=== PATIENT | male | born 1965 | race Caucasian/White ===

== ENCOUNTER 2023-04-26 14:24 | Inpatient (IN) ==
[2023-04-26 15:13] LABS: Basophils # (auto) 0.03 K/uL (0.00-0.20); Basophils % (auto) 0.3 %; Eosinophils # (auto) 0.02 K/uL (0.00-0.50); Eosinophils % (auto) 0.2 %; Hematocrit (blood only) 39.3 % (42.0-52.0); Immature Granulocytes # (auto) 0.06 K/uL (0.01-0.20); Immature Granulocytes % (auto) 0.5 %; Lymphocytes # (auto) 0.64 K/uL (1.20-3.40); Lymphocytes % (auto) 5.4 %; Mean Corpuscular Hemoglobin 30.2 pg (25.0-34.0); Mean Corpuscular Hgb Conc 35.6 g/dL (32.0-36.0); Mean Corpuscular Volume 84.7 fL (80.0-100.0); Mean Platelet Volume 10.7 fL (9.4-12.4); Monocytes # (auto) 1.26 K/uL (0.11-0.59); Monocytes % (auto) 10.7 %; Neutrophils # (auto) 9.77 K/uL (1.40-6.50); Neutrophils % (auto) 82.9 %; Platelet Count 174 K/uL (130-400); RDW Coefficient of Variation 12.9 % (11.5-14.5); RDW Standard Deviation 39.9 fL (36.4-46.3); Red Blood Count 4.64 M/uL (4.70-6.10); White Blood Count 11.78 K/ul (4.8-10.8)
--- NOTE | 2023-04-26 15:26 | XRay Report ---
XR chest 1V portable CLINICAL HISTORY: Shortness of breath. COMPARISON STUDY: Chest radiograph May 12, 2021. FINDINGS: No pneumothorax or pleural effusion is present. Cardiomegaly is unchanged. No evidence for pulmonary edema. A 5.5 cm right midlung mass-like opacity has developed since prior chest radiograph of May 12, 2021. Curvilinear lucency along the superolateral aspect of this abnormality is noted. IMPRESSION: 5.5 cm right midlung mass-like opacity, possibly cavitary. The findings are suspicious fo r a neoplasm however an infectious process could appear similar. A chest CT with contrast is recommen ded for further evaluation. ACT 112: Positive. There are findings on this exam that require communication between the performing entity and the patient following Patient Test Result Information Act ([place] Act 112) guidelines. Electronically signed by: Song Alvarado M.D. 04/26/2023 3:25 PM
[2023-04-26 15:32] LABS: INR 1.2 (0.9-1.1); Partial Thromboplastin Time 29 Seconds (21-31); Prothrombin Time 13.2 Seconds (9.0-12.0)
[2023-04-26 15:34] LABS: Influenza A virus by PCR Negative (Neg); Influenza B virus by PCR Negative (Neg); RSV by PCR Negative (Neg); SARS CoV2 RNA(COVID-19) Ceph NEGATIVE (Negative)
[2023-04-26 15:38] LABS: Alanine Aminotransferase 28 U/L (7-52); Albumin Level 3.7 gm/dl (3.4-5.0); Alkaline Phosphatase 58 U/L (34-104); Anion Gap 11 (3-11); BUN Creatinine Ratio 14.7 (10-20); Bilirubin,Total 1.2 mg/dl (0.2-1.0); Blood Urea Nitrogen 16 mg/dl (6-23); Calcium 8.6 mg/dl (8.6-10.3); Carbon Dioxide 23 mmol/L (21-32); Chloride 95 mmol/L (98-107); Creatinine Clr Calc Pharmacy 93.1 ml/min; Est GFR (African American) 85.7 ml/min; Est GFR (Non-African American) 73.9 ml/min; Globulin 3.6 gm/dl (2.5-4.0); Glucose 168 mg/dl (70-99(Fasting)); Sodium 129 mmol/L (136-145); Total Protein 7.3 gm/dl (6.0-8.3)
[2023-04-26 15:49] LABS: C Reactive Protein 31.38 mg/dl (0-0.5)
--- NOTE | 2023-04-26 16:27 | Emergency Department Note ---
Impression & Plan Sepsis, Fever, Pneumonia ED Provider Note CHIEF COMPLAINT: Illness HISTORY OF PRESENTING ILLNESS: This 58-year-old male patient presents to the emergency department via EMS from home for evaluation of nausea, vomiting, diarrhea, and fevers. Fevers have been 104 F max. Today his fevers got up to 104.7 F and he became concerned. He has also had a slight cough. Also has a very sour pain in his stomach. Not eating much of anything, but still drinking Gatorade. Denies any urinary symptoms. Having 3-4 watery stools a day. Denies chest pain or shortness of breath. Symptoms have been going on since 04/22/2023. Denies hematochezia, melena, hematuria, hemoptysis, or hematemesis. No previous history of TB. No known exposure to TB. 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 He does have ticks on him pretty frequently. Traveled to [facility], but no other travel outside the . No known ill contacts. Had 3 COVID vaccines. No flu vaccine. Took Dayquil at 8 am today REVIEW OF SYSTEMS: See HPI for pertinent positives and pertinent negatives. ALLERGIES: NKDA MEDICATIONS: Prilosec, ibuprofen prn PAST MEDICAL HISTORY: Musculoskeletal issues, history of sleep apnea, GERD PHYSICAL EXAM: VITALS: Vitals are noted on the nurse's note and reviewed by myself. GENERAL: The patient is ill-appearing and mildly diaphoretic at the time of my exam. He is tachycardic and febrile at the time of my exam. SKIN: Capillary refill <2 sec. EYES: PERRLA. EOMI. Conjunctivae without injection, sclerae without icterus. EARS: Bilateral external auditory canals are clear without tragus tenderness. Bilateral tympanic membranes are pearly kurtz without erythema or effusion. NOSE: Patent without discharge. MOUTH: Mucous membranes dry. There is a brown discoloration to his tongue, but no obvious white plaques. Uvula midline. Airway patent. Pharynx without erythema, edema, or exudate. NECK: Supple without nuchal rigidity. No lymphadenopathy. HEART: Regular rate and rhythm without murmurs gallops or rubs. LUNGS: Clear to auscultation bilaterally without wheezes, rales or rhonchi. No retractions or accessory muscle use. ABDOMEN: Positive bowel sounds x 4. Normal tympanic percussion. Soft, mildly diffusely tender to palpation. No masses or organomegaly. Arrieta sign negative. No guarding or rebound tenderness. No focal RLQ or LLQ tenderness. MUSCULOSKELETAL: No gross musculoskeletal defects. NEURO: Patient was alert and oriented. No focal neurological deficits. DIFFERENTIAL DIAGNOSIS: Differential diagnosis includes Influenza, RSV, COVID, viral syndrome, otitis media, otitis externa, pharyngitis, strep throat, pneumonia, meningitis, urinary tract infection, cellulitis, abscess, sepsis, bacteremia, as well as other pathologies. ED COURSE AND MEDICAL DECISION MAKING: HISTORY FROM INDEPENDENT HISTORIAN: Additional history was obtained from the patient's . MONITOR: Continuous human services manager: Order was placed for continuous human services manager. Patient was placed on the human services manager and continuous pulse ox. Patient was noted to be in sinus tachycardia at an initial rate of 110 bpm per my interpretation. EKG: EKG was interpreted by myself as sinus tachycardia at [address] with [address] acute [address] or T wave changes. MEDICATIONS GIVEN: A total of 3 L of normal saline solution bolus, Zosyn 4.5 g IV, Tylenol 1000 mg IV, Zithromax 500 mg IV. INTERPRETATION OF LABS: I interpreted the labs with full lab results as below in the lab section of this note. White blood cell count elevated 11.78. Hemoglobin normal at 14. Platelet count normal at 174. INR elevated at 1.2 with PT 13.2. aPTT and PTT were normal. Sodium was low at 129, chloride 95, glucose 168, total bilirubin 1.2, but CMP otherwise normal. CRP elevated at 31.38. Procalcitonin elevated at 7.66. Lactate normal at 1.5, but this was obtained after his first liter of IV fluids. Urinalysis with 2+ protein, 1+ ketones, 1+ blood, 1+ bilirubin, but no evidence for infection. [employer] respiratory panel was negative. Lyme disease IgG and IgM were negative. Anaplasma and Babesia smear were negative with DNA PCR still pending. QuantiFERON gold pending. INTERPRETATION OF IMAGING: Imaging studies were interpreted by myself and read by radiology as per the imaging section of this note. Chest x-ray showed a 5.5 cm right midlung masslike opacity possibly cavitary. The findings are suspicious for neoplasm, however, an infectious process could appear similar. A CT scan of the chest is recommended for further evaluation. CTA of the chest showed consolidation in the right upper lobe which likely represents pneumonia and less likely aspiration. Small right pleural effusion. No evidence for PE. CT scan of the abdomen pelvis with IV contrast showed nonspecific peritoneal stranding without definite acute abnormality and no other acute abnormalities. CONSULTATIONS: On-call hospitalist MDM SUMMARY: The patient was seen during a time of extreme volume and extreme acuity. Nursing triage protocols were initiated with IV lock, labs, and/or imaging studies conducted by protocol in the triage area. By the time I examined the patient, he had been in the ER for almost 2 hours. The patient was tachycardic and diaphoretic upon my exam and I was concerned for sepsis. I ordered 2 L of normal saline solution bolus and Zosyn 4.5 g IV. The patient had been given 1 liter of fluids prior to my evaluation that had not been documented in the computer so the patient received a total of 3 L of normal saline solution bolus. Laboratory studies showed a leukocytosis, hyponatremia, elevated CRP, and elevated procalcitonin. Lactate was normal, but this was after the patient had been given 1 L of normal saline solution bolus since it had not initially been ordered in triage. Tickborne illness testing was negative with Anaplasma and Babesia DNA PCR still pending. [employer] respiratory panel was negative. Urinalysis without evidence for infection. Chest x-ray showed a 5.5 cm right midlung masslike opacity which was possibly cavitary. Quant gold was ordered and is pending, but the patient denies any risk factors for TB. CTA of the chest shows a right upper lobe pneumonia. CT scan of the abdomen pelvis without acute abnormalities. The patient was unable to give a stool sample while in the emergency department. Blood cultures are pending. Patient was given a dose of Zithromax IV after the results of the CT scan were obtained. The patient had been given IV Tylenol with resolution of his fever while in the emergency department. His tachycardia did improve after the IV Tylenol and the IV fluids, but he did still have periods of tachycardia. His diaphoresis improved as well, but he did still appear ill. The patient will require admission for further IV antibiotics, evaluation, and treatment of his pneumonia and sepsis. I spoke with the on-call hospitalist who agreed to admit the patient for further management. Please refer to their dictation for further details. The patient's care was transferred in stable condition. DIAGNOSIS: Sepsis Right upper lobe pneumonia Fever Past Med/Surg History Medical History Arthritis Cervical disc disease GERD (gastroesophageal reflux disease) History of Mohs micrographic surgery for skin cancer Hx of basal cell carcinoma Left inguinal hernia Obesity Surgical History History of carpal tunnel release History of esophagogastroduodenoscopy (EGD) History of tooth extraction Hx of adenoidectomy Hx of appendectomy Hx of colonoscopy Family History Mother Breast cancer Cancer Sister Colorectal cancer Aunt Diabetes Grandfather Heart disease Other No family history of adverse response to anesthesia Social History Smoking Status: Never smoker Second Hand Exposure: No; Do You Dip or Chew Tobacco: No; Hx Alcohol Use: No Hx Substance Use: No Preferred Language: Frisian Communication Ability: Effective Product Support Consultant Required: No Beliefs That Will Affect Care: None marital status: Current Living Situation: Spouse current occupational status: employed 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 How many Children do You have: 2 Other Information That Helps Us Care for You: No Feels Safe at Home: Yes Safety Concerns: Feels Safe At This Time during the past year weight has: decreased > 10 lbs Assistive Devices: Glasses Allergies Allergies Allergy/AdvReac Type Severity Reaction Status Date / Time No Known Allergies Allergy Verified 04/26/23 16:07 Home Meds Home Medications Medication Instructions Recorded Confirmed omeprazole 20 mg capsule,delayed 20 mg PO DAILYBB 01/23/18 04/26/23 release ondansetron HCl 4 mg tablet 4 mg PO Q8H PRN Nausea 04/26/23 04/26/23 Results & Data (ED) Vital Signs Vital Signs - 24 hr 04/26/23 14:35 04/26/23 14:35 04/26/23 14:41 Temperature 38.4 C H Temperature Source Oral Pulse Rate 103 H 102 H Pulse Rate [Bilateral] Respiratory Rate 20 Respiratory Effort / Characteristics Non-Labored Respiratory Depth Normal Blood Pressure 144/91 H Blood Pressure [Right Arm] Blood Pressure Mean 108 Blood Pressure Mean [Right Arm] Pulse Oximetry 87 L 87 L Oxygen Delivery Method Room Air Nasal Cannula Oxygen Flow Rate 0 Sepsis Recent Fever Within 48 Hours No Sepsis New/Unexplained Change in Mental Status No Sepsis Action Taken by Nursing No Action Required Oxygen Flow Rate - Titration 3 Pulse Oximetry Post Tiitration 93 04/26/23 15:02 04/26/23 15:30 04/26/23 17:00 Temperature Temperature Source Pulse Rate Pulse Rate [Bilateral] 103 H 106 H 112 H Respiratory Rate 22 18 18 Respiratory Effort / Characteristics Respiratory Depth Blood Pressure Blood Pressure [Right Arm] 155/82 H 159/70 H 132/96 Blood Pressure Mean Blood Pressure Mean [Right Arm] 106 99 108 Pulse Oximetry 93 93 98 Oxygen Delivery Method Nasal Cannula Room Air Room Air Oxygen Flow Rate 3 Sepsis Recent Fever Within 48 Hours Sepsis New/Unexplained Change in Mental Status Sepsis Action Taken by Nursing Oxygen Flow Rate - Titration Pulse Oximetry Post Tiitration 04/26/23 18:25 04/26/23 18:31 04/26/23 19:30 Temperature 37.2 C Temperature Source Oral Pulse Rate Pulse Rate [Bilateral] 103 H 95 H Respiratory Rate 26 H 22 Respiratory Effort / Characteristics Respiratory Depth Blood Pressure Blood Pressure [Right Arm] 132/96 123/83 Blood Pressure Mean Blood Pressure Mean [Right Arm] 108 96 Pulse Oximetry 98 95 Oxygen Delivery Method Room Air Room Air Oxygen Flow Rate Sepsis Recent Fever Within 48 Hours Sepsis New/Unexplained Change in Mental Status Sepsis Action Taken by Nursing Oxygen Flow Rate - Titration Pulse Oximetry Post Tiitration Laboratory Data 04/26/23 14:30 04/26/23 15:51 Lab Results 04/26/23 04/26/23 04/26/23 Range/Units 14:30 14:35 14:35 WBC 11.78 H (4.8-10.8) K/ul RBC 4.64 L (4.70-6.10) M/uL Hgb 14.0 (14.0-18.0) g/dl Hct 39.3 L (42.0-52.0) % MCV 84.7 (80.0-100.0) fL MCH 30.2 (25.0-34.0) pg MCHC 35.6 (32.0-36.0) g/dL RDW Std Deviation 39.9 (36.4-46.3) fL RDW Coeff of Rolando 12.9 (11.5-14.5) % Plt Count 174 (130-400) K/uL MPV 10.7 (9.4-12.4) fL Immature Gran % (Auto) 0.5 % Neut % (Auto) 82.9 % Lymph % (Auto) 5.4 % [place] % (Auto) 10.7 % Eos % (Auto) 0.2 % Baso % (Auto) 0.3 % Neut # (Auto) 9.77 H (1.40-6.50) K/uL Lymph # (Auto) 0.64 L (1.20-3.40) K/uL [place] # (Auto) 1.26 H (0.11-0.59) K/uL Eos # (Auto) 0.02 (0.00-0.50) K/uL Baso # (Auto) 0.03 (0.00-0.20) K/uL Immature Gran # (Auto) 0.06 (0.01-0.20) K/uL PT 13.2 H (9.0-12.0) Seconds INR 1.2 H (0.9-1.1) APTT 29 (21-31) Seconds PTT Ratio 1.0 Sodium 129 L (136-145) mmol/L Potassium TNP Chloride 95 L (98-107) mmol/L Carbon Dioxide 23 (21-32) mmol/L Anion Gap 11 (3-11) BUN 16 (6-23) mg/dl Creatinine 1.09 (0.6-1.4) mg/dl Est Cr Clr Drug Dosing 93.1 ml/min Est GFR ( Amer) 85.7 ml/min Est GFR (Non-Af Amer) 73.9 ml/min BUN/Creatinine Ratio 14.7 (10-20) Glucose 168 H (70-99(Fasting)) mg/dl Lactate (0.4-2.0) mmol/L Calcium 8.6 (8.6-10.3) mg/dl Total Bilirubin 1.2 H (0.2-1.0) mg/dl AST TNP ALT 28 (7-52) U/L Alkaline Phosphatase 58 (34-104) U/L Troponin I High Sens 18.0 (0-20) pg/ml C-Reactive Protein 31.38 H (0-0.5) mg/dl Total Protein 7.3 (6.0-8.3) gm/dl Albumin 3.7 (3.4-5.0) gm/dl Globulin 3.6 (2.5-4.0) gm/dl Albumin/Globulin Ratio 1.0 (0.9-2) Procalcitonin 7.66 H (0-0.5) ng/ml Urine Color Urine Appearance (Clear) Urine pH (4.5-7.5) Ur Specific [place] (1.000-1.030) Urine Protein (Negative) Urine Glucose (UA) (Negative) Urine Ketones (Negative) Urine Blood (Negative) Urine Nitrite (Negative) Urine Bilirubin (Negative) Urine Urobilinogen (Negative) Ur Leukocyte Esterase (Negative) Urine WBC (Auto) (0-5) /hpf Urine RBC (Auto) (0-4) /hpf U Hyaline Cast (Auto) (0-5) /lpf U Epithel Cells (Auto) (0-5) /lpf Urine Bacteria (Auto) (Negative) Adenovirus (PCR) Not Detected (NotDetected) Anaplasma Smear See Comment Babesia Smear See Comment B. pertussis DNA (PCR) Not Detected (NotDetected) B.parapertussis DNA PCR Not Detected (NotDetected) Lyme Disease IgG Ab Negative (Negative) Lyme Disease IgM Ab Negative (Negative) C. pneumoniae DNA (PCR) Not Detected (NotDetected) Coronavirus OC43 (PCR) Not Detected (NotDetected) Coronavirus HKU1 (PCR) Not Detected (NotDetected) Coronavirus 229E (PCR) Not Detected (NotDetected) SARS-CoV-2 (PCR) NEGATIVE Not Detected (Negative) Coronavirus NL63 (PCR) Not Detected (NotDetected) Human Metapneumovir PCR Not Detected (NotDetected) Influenza Type A (PCR) Negative (Neg) Influenza Type B (PCR) (Neg) M. pneumoniae (PCR) (NotDetected) Parainfluenza 1 (PCR) (NotDetected) Parainfluenza 2 (PCR) (NotDetected) Parainfluenza 3 (PCR) (NotDetected) Parainfluenza 4 (PCR) (NotDetected) RSV (RT-PCR) (Neg) RSV (PCR) (NotDetected) Entero/Rhino (PCR) (NotDetected) 04/26/23 04/26/23 04/26/23 Range/Units 14:35 14:35 15:51 WBC (4.8-10.8) K/ul RBC (4.70-6.10) M/uL Hgb (14.0-18.0) g/dl Hct (42.0-52.0) % MCV (80.0-100.0) fL MCH (25.0-34.0) pg MCHC (32.0-36.0) g/dL RDW Std Deviation (36.4-46.3) fL RDW Coeff of Rolando (11.5-14.5) % Plt Count (130-400) K/uL MPV (9.4-12.4) fL Immature Gran % (Auto) % Neut % (Auto) % Lymph % (Auto) % [place] % (Auto) % Eos % (Auto) % Baso % (Auto) % Neut # (Auto) (1.40-6.50) K/uL Lymph # (Auto) (1.20-3.40) K/uL [place] # (Auto) (0.11-0.59) K/uL Eos # (Auto) (0.00-0.50) K/uL Baso # (Auto) (0.00-0.20) K/uL Immature Gran # (Auto) (0.01-0.20) K/uL PT (9.0-12.0) Seconds INR (0.9-1.1) APTT (21-31) Seconds PTT Ratio Sodium (136-145) mmol/L Potassium 3.5 Chloride (98-107) mmol/L Carbon Dioxide (21-32) mmol/L Anion Gap (3-11) BUN (6-23) mg/dl Creatinine (0.6-1.4) mg/dl Est Cr Clr Drug Dosing ml/min Est GFR ( Amer) ml/min Est GFR (Non-Af Amer) ml/min BUN/Creatinine Ratio (10-20) Glucose (70-99(Fasting)) mg/dl Lactate (0.4-2.0) mmol/L Calcium (8.6-10.3) mg/dl Total Bilirubin (0.2-1.0) mg/dl AST 32 ALT (7-52) U/L Alkaline Phosphatase (34-104) U/L Troponin I High Sens (0-20) pg/ml C-Reactive Protein (0-0.5) mg/dl Total Protein (6.0-8.3) gm/dl Albumin (3.4-5.0) gm/dl Globulin (2.5-4.0) gm/dl Albumin/Globulin Ratio (0.9-2) Procalcitonin (0-0.5) ng/ml Urine Color Urine Appearance (Clear) Urine pH (4.5-7.5) Ur Specific [place] (1.000-1.030) Urine Protein (Negative) Urine Glucose (UA) (Negative) Urine Ketones (Negative) Urine Blood (Negative) Urine Nitrite (Negative) Urine Bilirubin (Negative) Urine Urobilinogen (Negative) Ur Leukocyte Esterase (Negative) Urine WBC (Auto) (0-5) /hpf Urine RBC (Auto) (0-4) /hpf U Hyaline Cast (Auto) (0-5) /lpf U Epithel Cells (Auto) (0-5) /lpf Urine Bacteria (Auto) (Negative) Adenovirus (PCR) (NotDetected) Anaplasma Smear Babesia Smear B. pertussis DNA (PCR) (NotDetected) B.parapertussis DNA PCR (NotDetected) Lyme Disease IgG Ab (Negative) Lyme Disease IgM Ab (Negative) C. pneumoniae DNA (PCR) (NotDetected) Coronavirus OC43 (PCR) (NotDetected) Coronavirus HKU1 (PCR) (NotDetected) Coronavirus 229E (PCR) (NotDetected) SARS-CoV-2 (PCR) (Negative) Coronavirus NL63 (PCR) (NotDetected) Human Metapneumovir PCR (NotDetected) Influenza Type A (PCR) Not Detected (Neg) Influenza Type B (PCR) Negative Not Detected (Neg) M. pneumoniae (PCR) Not Detected (NotDetected) Parainfluenza 1 (PCR) Not Detected (NotDetected) Parainfluenza 2 (PCR) Not Detected (NotDetected) Parainfluenza 3 (PCR) Not Detected (NotDetected) Parainfluenza 4 (PCR) Not Detected (NotDetected) RSV (RT-PCR) Negative (Neg) RSV (PCR) Not Detected (NotDetected) Entero/Rhino (PCR) Not Detected (NotDetected) 04/26/23 04/26/23 Range/Units 17:49 18:11 WBC (4.8-10.8) K/ul RBC (4.70-6.10) M/uL Hgb (14.0-18.0) g/dl Hct (42.0-52.0) % MCV (80.0-100.0) fL MCH (25.0-34.0) pg MCHC (32.0-36.0) g/dL RDW Std Deviation (36.4-46.3) fL RDW Coeff of Rolando (11.5-14.5) % Plt Count (130-400) K/uL MPV (9.4-12.4) fL Immature Gran % (Auto) % Neut % (Auto) % Lymph % (Auto) % [place] % (Auto) % Eos % (Auto) % Baso % (Auto) % Neut # (Auto) (1.40-6.50) K/uL Lymph # (Auto) (1.20-3.40) K/uL [place] # (Auto) (0.11-0.59) K/uL Eos # (Auto) (0.00-0.50) K/uL Baso # (Auto) (0.00-0.20) K/uL Immature Gran # (Auto) (0.01-0.20) K/uL PT (9.0-12.0) Seconds INR (0.9-1.1) APTT (21-31) Seconds PTT Ratio Sodium (136-145) mmol/L Potassium Chloride (98-107) mmol/L Carbon Dioxide (21-32) mmol/L Anion Gap (3-11) BUN (6-23) mg/dl Creatinine (0.6-1.4) mg/dl Est Cr Clr Drug Dosing ml/min Est GFR ( Amer) ml/min Est GFR (Non-Af Amer) ml/min BUN/Creatinine Ratio (10-20) Glucose (70-99(Fasting)) mg/dl Lactate 1.5 (0.4-2.0) mmol/L Calcium (8.6-10.3) mg/dl Total Bilirubin (0.2-1.0) mg/dl AST ALT (7-52) U/L Alkaline Phosphatase (34-104) U/L Troponin I High Sens (0-20) pg/ml C-Reactive Protein (0-0.5) mg/dl Total Protein (6.0-8.3) gm/dl Albumin (3.4-5.0) gm/dl Globulin (2.5-4.0) gm/dl Albumin/Globulin Ratio (0.9-2) Procalcitonin (0-0.5) ng/ml Urine Color Dark Yellow Urine Appearance Clear (Clear) Urine pH 5.5 (4.5-7.5) Ur Specific [place] > 1.045 H (1.000-1.030) Urine Protein 2+ H (Negative) Urine Glucose (UA) Negative (Negative) Urine Ketones 1+ H (Negative) Urine Blood 1+ H (Negative) Urine Nitrite Negative (Negative) Urine Bilirubin 1+ H (Negative) Urine Urobilinogen Negative (Negative) Ur Leukocyte Esterase Negative (Negative) Urine WBC (Auto) 1-5 (0-5) /hpf Urine RBC (Auto) 0-4 (0-4) /hpf U Hyaline Cast (Auto) 1-5 (0-5) /lpf U Epithel Cells (Auto) 10-20 H (0-5) /lpf Urine Bacteria (Auto) 1+ H (Negative) Adenovirus (PCR) (NotDetected) Anaplasma Smear Babesia Smear B. pertussis DNA (PCR) (NotDetected) B.parapertussis DNA PCR (NotDetected) Lyme Disease IgG Ab (Negative) Lyme Disease IgM Ab (Negative) C. pneumoniae DNA (PCR) (NotDetected) Coronavirus OC43 (PCR) (NotDetected) Coronavirus HKU1 (PCR) (NotDetected) Coronavirus 229E (PCR) (NotDetected) SARS-CoV-2 (PCR) (Negative) Coronavirus NL63 (PCR) (NotDetected) Human Metapneumovir PCR (NotDetected) Influenza Type A (PCR) (Neg) Influenza Type B (PCR) (Neg) M. pneumoniae (PCR) (NotDetected) Parainfluenza 1 (PCR) (NotDetected) Parainfluenza 2 (PCR) (NotDetected) Parainfluenza 3 (PCR) (NotDetected) Parainfluenza 4 (PCR) (NotDetected) RSV (RT-PCR) (Neg) RSV (PCR) (NotDetected) Entero/Rhino (PCR) (NotDetected) Administered Medications Enoxaparin Sodium (Enoxaparin Inj 40 Mg/0.4 Ml Syr) 40 mg SQ Q24H [facility] Stop: 05/26/23 21:59 Last Admin: 04/26/23 22:44 Dose: 40 mg Documented By: YANNA Sodium Chloride (Nss) 1,000 mls @ 125 mls/hr IV .Q8H [facility] Stop: 05/26/23 22:08 Last Admin: 04/26/23 22:35 Dose: 125 mls/hr Documented By: YANNA Piperacillin Sod/Tazobactam (Sod 4.5 gm/ Dextrose) 100 mls @ 25 mls/hr IV Q8H [facility]; Protocol Stop: 05/03/23 22:59 Last Admin: 04/27/23 00:29 Dose: 25 mls/hr Documented By: YANNA Doxycycline Hyclate 100 mg/ (Dextrose) 100 mls @ 50 mls/hr IV Q12H [facility] Stop: 05/03/23 22:29 Last Infusion: 04/27/23 00:45 Dose: Infused Documented By: Admin: 04/26/23 22:45 Dose: 50 mls/hr Documented By: YANNA Ondansetron HCl (Ondansetron Inj 2 Mg/Ml 2 Ml Vial) 4 mg IV Q6H PRN PRN Reason: Nausea Stop: 05/26/23 22:08 Last Admin: 04/26/23 22:33 Dose: 4 mg Documented By: YANNA Discontinued Medications Sodium Chloride (Nss) 1,000 mls @ 999 mls/hr IV .Q1H1M [facility] Stop: 04/26/23 18:45 Last Infusion: 04/26/23 19:56 Dose: Infused Documented By: Admin: 04/26/23 18:51 Dose: 999 mls/hr Documented By: Infusion: 04/26/23 18:48 Dose: Infused Documented By: Admin: 04/26/23 17:47 Dose: 999 mls/hr Documented By: JUAN Piperacillin Sod/Tazobactam Sod (Zosyn) 4.5 gm in 100 mls @ 200 mls/hr IV NOW ONE Stop: 04/26/23 17:12 Last Infusion: 04/26/23 18:15 Dose: Infused Documented By: Admin: 04/26/23 17:46 Dose: 200 mls/hr Documented By: JUAN Acetaminophen (Ofirmev) 1,000 mg in 100 mls @ 400 mls/hr IV NOW STA Stop: 04/26/23 17:00 Last Infusion: 04/26/23 18:05 Dose: Infused Documented By: Admin: 04/26/23 17:47 Dose: 400 mls/hr Documented By: JUAN Azithromycin 500 mg/ Dextrose 255 mls @ 125 mls/hr IV ONE ONE Stop: 04/26/23 20:41 Last Infusion: 04/26/23 21:33 Dose: Infused Documented By: Admin: 04/26/23 19:25 Dose: 125 mls/hr Documented By: IGLESIA Ioversol (Optiray 320 125ml) 116 ml IV ONCE ONE Stop: 04/26/23 17:07 Last Admin: 04/26/23 17:06 Dose: 116 ml Documented By: EDK Imaging Data Radiologist's Impression: Chest X-Ray 04/26/23 14:39 XR chest 1V portable CLINICAL HISTORY: Shortness of breath. COMPARISON STUDY: Chest radiograph May 12, 2021. FINDINGS: No pneumothorax or pleural effusion is present. Cardiomegaly is unchanged. No evidence for pulmonary edema. A 5.5 cm right midlung mass-like opacity has developed since prior chest radiograph of May 12, 2021. Curvilinear lucency along the superolateral aspect of this abnormality is noted. IMPRESSION: 5.5 cm right midlung mass-like opacity, possibly cavitary. The findings are suspicious for a neoplasm however an infectious process could appear similar. A chest CT with contrast is recommended for further evaluation. ACT 112: Positive. There are findings on this exam that require communication between the performing entity and the patient following Patient Test Result Information Act ([place] Act 112) guidelines. Electronically signed by: Song Alvarado M.D. 04/26/2023 3:25 PM Abdomen/Pelvis CT 04/26/23 16:43 CT abd pelvis IV con only CLINICAL HISTORY: fever, abdominal pain, N/V/D TECHNIQUE: Helical axial images of the abdomen and pelvis were obtained and displayed. Automated dose lowering techniques and/or adjustment according to patient size were utilized for this exam. This exam was performed with intravenous contrast. COMPARISON: Comparison is made to CT abdomen pelvis 02/03/2006 FINDINGS: Lower chest: For findings above the diaphragm, please see CT chest performed same day. Liver: Hepatic steatosis is noted. Gallbladder and biliary tree: No calcified gallstones. Normal caliber wall. No intra- or extrahepatic biliary ductal dilation. Pancreas: Unremarkable, no focal lesions. Spleen: Splenic hypodensity is seen. Adrenals: Unremarkable. Kidneys and ureters: Subcentimeter hypodensities are too small to characterize. Bladder: Unremarkable. Reproductive organs: Unremarkable. Bowel: Diverticulosis is seen without evidence of diverticulitis. A hiatal hernia is seen. Lymph nodes Retroperitoneal: Unremarkable. Pelvic: Unremarkable. Mesenteric: Unremarkable. Peritoneum: There is mild perinephric stranding and minimal peritoneal stranding without luis fluid collection. Vessels: Unremarkable. Abdominal wall: A fat-containing umbilical hernia is seen. Bones: Degenerative changes in the visualized spine. IMPRESSION: No acute abnormalities. Nonspecific peritoneal stranding without definite acute abnormality. ACT 112: Negative or not required by law. Electronically signed by: Laureano Currie M.D. 04/26/2023 6:09 PM Chest CTA 04/26/23 16:43 CT angio chest PE protocol CLINICAL HISTORY: PE TECHNIQUE: Multidetector row helical CT of the chest was performed with angiographic protocol. Coronal and sagittal reformations were obtained. Coronal and sagittal MIPS were obtained from the axial data set and were submitted for review. Automated dose lowering techniques and/or adjustment according to patient size were utilized for this exam. CT DOSE: 3428.33 mGy.cm Comparison: Chest radiograph 04/26/2023 FINDINGS: Lungs and pleura: Right upper lobe consolidation is seen. There is small right pleural effusion with trace bibasilar atelectasis. Heart and pericardium: Heart size is normal. No pericardial effusion. Vessels: No evidence of pulmonary embolism. Mediastinum and rae: Subcentimeter lymph nodes are seen. Chest wall and lower neck: Unremarkable. Abdomen: For findings below the diaphragm, please refer to CT of the abdomen dated the same. Bones: Degenerative changes in the thoracic spine. IMPRESSION: 1. No pulmonary embolus. Consolidation in the right upper lobe likely represents pneumonia, less likely aspiration. 2. Small right pleural effusion. ACT 112: Negative or not required by law. Electronically signed by: Laureano Currie M.D. 04/26/2023 5:44 PM Discharge Plan Visit Data Chief Complaint: Illness ED Provider: Cole Douglass ED Midlevel Provider: Irma Esquivel Discharge Problem: Sepsis, Fever, Pneumonia Patient Disposition: Admitted As Inpatient Condition: Fair Discharge Instructions Interventions: ED Discharge Assessment Last Done: 04/26/23 21:20 Discharge Problem: Fever Qualifiers: Encounter type: initial encounter Pneumonia Qualifiers: Pneumonia type: due to unspecified organism Laterality: right Lung location: u pper lobe of lung Qualified Code(s): J18.9 - Pneumonia, unspecified organism
[2023-04-26 16:35] LABS: Potassium 3.5 mmol/L (3.5-5.1)
[2023-04-26] MEDS ORDERED: PIPERACILLIN/TAZOBACTAM 4.5 GM/100 ML BAG IV ONE (16:43)
[2023-04-26] MEDS ORDERED: ACETAMINOPHEN 1,000 MG/100 ML VIAL IV STA (16:46)
[2023-04-26] MEDS ORDERED: OPTIRAY 320 125ml IV ONE (17:06)
--- NOTE | 2023-04-26 17:46 | CT Scan Report ---
CT angio chest PE protocol CLINICAL HISTORY: PE TECHNIQUE: Multidetector row helical CT of the chest was performed with angiographic protocol. Root l and sagittal reformations were obtained. Coronal and sagittal MIPS were obtained from the axial filemon a set and were submitted for review. Automated dose lowering techniques and/or adjustment according to patient size were utilized for this exam. CT DOSE: 3428.33 mGy.cm Comparison: Chest radiograph 04/26/2023 FINDINGS: Lungs and pleura: Right upper lobe consolidation is seen. There is small right pleural effusion with trace bibasilar atelectasis. Heart and pericardium: Heart size is normal. No pericardial effusion. Vessels: No evidence of pulmonary embolism. Mediastinum and rae: Subcentimeter lymph nodes are seen. Chest wall and lower neck: Unremarkable. Abdomen: For findings below the diaphragm, please refer to CT of the abdomen dated the same. Bones: Degenerative changes in the thoracic spine. IMPRESSION: 1. No pulmonary embolus. Consolidation in the right upper lobe likely represents pneumonia, less lik yesy aspiration. 2. Small right pleural effusion. ACT 112: Negative or not required by law. Electronically signed by: Laureano Currie M.D. 04/26/2023 5:44 PM
[2023-04-26] MEDS: SODIUM CHLORIDE 0.9% 1,000 ML IV SCH ×3 (17:47→22:35)
[2023-04-26 17:49] LABS: Lyme Ab IgG w/WB Rflx Negative (Negative); Lyme Ab IgM w/WB Rflx Negative (Negative)
--- NOTE | 2023-04-26 18:11 | CT Scan Report ---
CT abd pelvis IV con only CLINICAL HISTORY: fever, abdominal pain, N/V/D TECHNIQUE: Helical axial images of the abdomen and pelvis were obtained and displayed. Automated dose lowering techniques and/or adjustment according to patient size were utilized for this exam. This e xam was performed with intravenous contrast. COMPARISON: Comparison is made to CT abdomen pelvis 02/03/2006 FINDINGS: Lower chest: For findings above the diaphragm, please see CT chest performed same day. Liver: Hepatic steatosis is noted. Gallbladder and biliary tree: No calcified gallstones. Normal caliber wall. No intra- or extrahepatic biliary ductal dilation. Pancreas: Unremarkable, no focal lesions. Spleen: Splenic hypodensity is seen. Adrenals: Unremarkable. Kidneys and ureters: Subcentimeter hypodensities are too small to characterize. Bladder: Unremarkable. Reproductive organs: Unremarkable. Bowel: Diverticulosis is seen without evidence of diverticulitis. A hiatal hernia is seen. Lymph nodes Retroperitoneal: Unremarkable. Pelvic: Unremarkable. Mesenteric: Unremarkable. Peritoneum: There is mild perinephric stranding and minimal peritoneal stranding without luis fluid collection. Vessels: Unremarkable. Abdominal wall: A fat-containing umbilical hernia is seen. Bones: Degenerative changes in the visualized spine. IMPRESSION: No acute abnormalities. Nonspecific peritoneal stranding without definite acute abnormality. ACT 112: Negative or not required by law. Electronically signed by: Laureano Currie M.D. 04/26/2023 6:09 PM
[2023-04-26 18:28] LABS: Adenovirus PCR Not Detected (NotDetected); Bordetella parapertussis PCR Not Detected (NotDetected); Bordetella pertussis PCR Not Detected (NotDetected); Chlamydia pneumoniae PCR Not Detected (NotDetected); Coronavirus 229E PCR Not Detected (NotDetected); Coronavirus CoV-2 (COVID19)PCR Not Detected (NotDetected); Coronavirus HKU1 PCR Not Detected (NotDetected); Coronavirus NL63 PCR Not Detected (NotDetected); Coronavirus OC43PCR Not Detected (NotDetected); Human Metapneumovirus PCR Not Detected (NotDetected); Influenza A PCR Not Detected (NotDetected); Influenza B PCR Not Detected (NotDetected); Mycoplasma pneumoniae PCR Not Detected (NotDetected); Parainfluenza Virus 1 PCR Not Detected (NotDetected); Parainfluenza Virus 2 PCR Not Detected (NotDetected); Parainfluenza Virus 3 PCR Not Detected (NotDetected); Parainfluenza Virus 4 PCR Not Detected (NotDetected); Respiratory Syncytial VirusPCR Not Detected (NotDetected); Rhinovirus/Enterovirus PCR Not Detected (NotDetected)
[2023-04-26 18:28] LABS: Appearance Urine Clear (Clear); Blood Urine 1+ (Negative); Color Urine Dark Yellow; Glucose Urine UA Negative (Negative); Ketones Urine 1+ (Negative); Leukocyte Esterase Urine Negative (Negative); Nitrite Urine Negative (Negative); Protein Urine 2+ (Negative); Specific Gravity Urine > 1.045 (1.000-1.030); Urobilinogen Urine Negative (Negative); pH Urine 5.5 (4.5-7.5)
[2023-04-26 18:29] LABS: Bilirubin Urine 1+ (Negative)
[2023-04-26 18:37] LABS: Bacteria Urine Automated 1+ (Negative); RBC Urine Automated 0-4 /hpf (0-4)
[2023-04-26] MEDS ORDERED: AZITHROMYCIN 500 MG in DEXTROSE 5% 250 ML IV ONE (18:39)
--- OUTSIDE RECORDS SUMMARY | 2023-04-26 20:18 | External Medical Summary | Summary of Care ---
Author Name Unknown Organization [facility] Address [address] [place] [address] Phone [phone] Care Team Providers Care Health Care Aide Name Role Phone Milagro Nava DO Primary Care Provider Reason for Visit * Reason Onset Date Comments Order Request 03/22/2023 LABS Encounter Details Date Type Department Care Team (Late st Contact Info) Description 03/22/2023 Telephone Family Practice [facility] [address] [place] [address] Milargo Nava DO [address] [facility] [place] [id number] Order Request (LABS ) Allergies No known active allergiesdocumented as of this encounter (statuses as of 04/02/2023) Medications Medication Sig Dispensed Refills Start Date End Date Status ibuprofen (MOTRIN) 600 MG Tablet Take 1 Tab by mouth daily. Takes 600 MG, 2-3 times a day as needed. 0 08/23/2016 Active Omeprazole 20 MG Oral Capsule Delayed Release (PriLOSEC) TAKE 1 CAPSULE BY MOUTH DAILY, TAKE 1 HOUR BEFORE THE FIRST MEAL OF THE DAY 30 Cap 5 09/22/2020 Active Ketoconazole 2 % External Shampoo (Nizoral) Apply topically to affected area every 3 days. Apply to scalp as a shampoo, leaving on for 5 minutes, every 3 days 120 mL 5 12/02/2020 Active documented as of this encounter (statuses as of 04/02/2023) Active Problems Problem Noted Date Diagnosed Date Herniated disc, cervical documented as of this encounter (statuses as of 04/02/2023) Resolved Problems Problem Noted Date Diagnosed Date Resolved Date Abdominal pain, generalized 10/04/2017 documented as of this encounter (statuses as of 04/02/2023) Immunizations Name Administration Dates Next Due COVID-19 mRNA, LNP-s, No Pre serve, 2-Dose Series (Pfizer) 04/24/2021,06/20/2020,05/27/2020 Rabies Vaccine (Rabavert) 11/05/2015,11/02/2015 TDAP (age 11 and older)(Adacel) 10/18/2008 documented as of this encounter Social History Tobacco Use Types Packs/Day Years Used Date Smoking Tobacco: Never Smokeless Tobacco: Never Alcohol Use Standard Drinks/Week Comments No 0 (1 standard drink = 0.6 oz pur e alcohol) PHQ-2 Answer Date Recorded PHQ-2 Score 0 04/14/2020 Hunger Vital Sign Answer Date Recorded Worried About Running Out of Food in the Last Ye ar Never true 01/27/2019 Ran Out of Food in the Last Year Never true 01/27/2019 Sex and Gender Information Value Date Recorded Sex Assigned at Not on file Gender Identity Not on file Sexual Orientation Not on file Job Start Date Occupation Industry Not on file Not on file Not on file documented as of this encounter Functional Status Functional Status Response Date of Assess ment Are you deaf or do you have serious difficulty h earing? No 02/10/2021 Are you blind or do you have serious difficulty seeing, even when wearing glasses? No 02/10/2021 Do you have serious difficul ty walking or climbing stairs? (5 years old or older) No 02/10/2021 Do you have difficulty dress ing or bathing? (5 years old or older) No 02/10/2021 Because of a physical, menta l, or emotional condition, do you have difficulty doing errands alone such as visiting a doctor s office or shopping? (15 years old or older) No 02/11/20 21 Cognitive Status Response Date of Assessm ent Because of a physical, menta l, or emotional condition, do you have serious difficulty concentrating, remembering, or making decisions? (5 years old or older) No 02/10/2021 documented as of this encounter Miscellaneous Notes * Telephone Encounter - Kelsie Shukla OSA - 04/02/2023 8:27 AM EST Pt calling to check status, as he hadn't heard back (perhaps he didn't check his voicemail, as it looks as though he was contacted). Regardless, advised that orders are in chart already, and he can have them drawn at his convenience. No further questions/ concerns. * Telephone Encounter - Lydia Adrian LPN - 03/22/2023 1:45 PM EST Left message for patient, active lab orders in chart * Telephone Encounter - Christina Dunham OSA - 03/22/2023 7:56 AM EST An order was requested for this patient. Name of Requesting Provider: Pt Order Requested: Labs for diabetic screening and complete blood panel Diagnosis/Reason for Request: Pt says he has not been feeling well lately If order request is for Mammogram: Is the patient having any breast symptoms? N/A Is there a chance of ? N/A Has the patient had any breast problems in the past? NA What location AND department does the patient wish to have their order completed at? NA Fax Number, if applicable: NA Call Back Number: If the caller is not a current patient, please advise the patient to call their current PCP to havethe order's prior to being seen in our office. The patient was informed that our providers would not order anything (medication, labs, etc.) prior to being seen. documented in this encounter Plan of Treatment Upcoming Encounters Date Type Department Care Team (Late st Contact Info) Description 04/03/2023 6:40 PM EST Office Visit General Internal Medicine [facility] [place] [address] [place] [address] Leona Arnold MD [address] [place] [id number] Scheduled Procedures Name Priority Associated Diagnoses Date/Ti me COLONOSCOPY FLEXIBLE PROXIMAL DIAGNOSTIC Recall History of colon polyps Health Maintenance Due Date Last Done Comments Hepatitis B (1 of 3 - 3-dose series) 1965 HIV Screening 1979 Zoster Vaccines (1 of 2) 2014 DTaP,Tdap,and Td Vaccines (2 - Td or Tdap) 10/18/2018 10/18/2008 Depression Screening 04/14/2021 04/14/2020 COVID-19 Vaccine (24 season) 2023 04/24/2021, 06/20/2020, 05/27/2020 Influenza Vaccine (FLU shot) (#1) 2023 Diabetes Screening 05/15/2024 05/15/2021, 0 05/12/2021, 2016, Additional history exists COLONOSCOPY-EVERY 5 YRS AGES 18-100 07/07/2025 07/07/2020, 07/07/2020, 10/13/2015, Additional history exists Lipid Panel 05/15/2026 05/15/2021, 1212/2015, 11/20/2013, Additional history exists GARDASIL-HPV IMMUNIZATION SERIES Aged Out No longer eligible based on patient's age to complete this topic MENINGOCOCCAL (MENACTRA/MENVEO) Aged Out No longer eligible based on patient's age to complete this topic Pneumococcal Vaccine: Pediatrics (0 to 5 Years) and At-Risk Patients (6 to 64 Years) Aged Out No longer eligible based on patient's age to complete this topic documented as of this encounter Medical Devices Not on filedocumented as of this encounter Care Teams Health Care Aide Relationship Specialty Start Date End Date Milagro Nava DO [address] [place] [address] PCP - General Family Medicine 10/04/17 documented as of this encounter
--- OUTSIDE RECORDS SUMMARY | 2023-04-26 20:18 | External Medical Summary ---
Author Name Unknown Address Unknown Organization [id number]:[facility] [place] - [address] [place] [address] Laboratory Report Ordering Provider Test Date Status NAKUL GASTELUM 04/04/2023 07:58:06 Final Observation Date Value Abnormality Reference (Units ) Status TSH 04/04/2023 07:58:06 1.66 0.27-4.20 (uIU/mL) Final Performing Location [facility] - [address] [place] [address]
--- OUTSIDE RECORDS SUMMARY | 2023-04-26 20:18 | External Medical Summary | Summary of Care ---
Author Name Unknown Organization [facility] Address [address] [place] [address] Phone [phone] Care Team Providers Care Client Service Consultant Name Role Phone Milagro Nava DO Primary Care Provider Reason for Visit * Reason Comments Outpatient Testing Encounter Details Date Type Department Care Team (Late st Contact Info) Description 04/04/2023 8:10 AM EST Laboratory Laboratory [facility] [address] [place] [id number] [place], [facility] [address] [place] [address] Mononeuropathy Allergies No known active allergiesdocumented as of this encounter (statuses as of 04/04/2023) Medications Medication Sig Dispensed Refills Start Date End Date Status ibuprofen (MOTRIN) 600 MG Tablet Take 1 Tablet by mouth in the morning. Takes 600 MG, 2-3 times a day as needed.. 0 08/23/2016 Active Omeprazole 20 MG Oral Capsule Delayed Release (PriLOSEC) TAKE 1 CAPSULE BY MOUTH DAILY, TAKE 1 HOUR BEFORE THE FIRST MEAL OF THE DAY 30 Cap 5 09/22/2020 Active documented as of this encounter (statuses as of 04/04/2023) Active Problems Problem Noted Date Diagnosed Date Herniated disc, cervical documented as of this encounter (statuses as of 04/04/2023) Resolved Problems Problem Noted Date Diagnosed Date Resolved Date Abdominal pain, generalized 10/04/2017 documented as of this encounter (statuses as of 04/04/2023) Immunizations Name Administration Dates Next Due COVID-19 [...] No 02/10/2021 documented as of this encounter Plan of Treatment Pending Results Name Type Priority Associated Diagnoses Date /Time GLUCOSE Lab Routine Mononeuropathy 04/04/2023 7:58 AM EST HEMOGLOBIN A1C Lab Routine Mononeuropathy 04/04/2023 7:58 AM EST FERRITIN Lab Routine Mononeuropathy 04/04/2023 7:58 AM EST VITAMIN B12 Lab Routine Mononeuropathy 04/04/2023 7:58 AM EST TSH WITH FREE T4 IF INDICATED Lab Routine Mononeuropathy 04/04/2023 7:58 AM EST CBC Lab Routine Mononeuropathy 04/04/2023 7:58 AM EST Scheduled Procedures Name Priority Associated Diagnoses Date/Ti me COLONOSCOPY FLEXIBLE PROXIMAL DIAGNOSTIC Recall History of colon polyps Health Maintenance Due Date Last Done Comments Hepatitis B (1 of 3 - 3-dose series) 1964 HIV Screening 1979 Zoster Vaccines (1 of 2) 2014 DTaP,Tdap,and Td Vaccines (2 - Td or Tdap) 10/18/2018 10/18/2008 Depression Screening 04/14/2021 04/14/2020 COVID-19 Vaccine ( - season) 2023 04/24/2021, 06/20/2020, 05/27/2020 Influenza Vaccine (FLU shot) (#1) 2023 Diabetes Screening 05/15/2024 05/15/2021, 0 05/12/2021, 2016, Additional history exists COLONOSCOPY-EVERY 5 YRS AGES 18-100 07/07/2025 07/07/2020, 07/07/2020, 10/13/2015, Additional history exists Lipid Panel 05/15/2026 05/15/2021, 12/0 12/2015, 11/20/2013, Additional history exists GARDASIL-HPV IMMUNIZATION SERIES [...] Not on filedocumented as of this encounter Visit Diagnoses Diagnosis Mononeuropathy Mononeuritis of unspecified site documented in this encounter Care Teams Client Service Consultant Relationship Specialty Start Date End Date Milagro Nava DO [address] [place] [address] PCP - General Family Medicine 10/04/17 documented as of this encounter
--- OUTSIDE RECORDS SUMMARY | 2023-04-26 20:18 | External Medical Summary ---
Author Name Unknown Address Unknown Organization [id number]:[facility] - [address] [place] [address] Laboratory Report Ordering Provider Test Date Status NAKUL GASTELUM 04/04/2023 07:58:06 Final Observation Date Value Abnormality Reference (Units ) Status Ferritin 04/04/2023 07:58:06 415 Above high normal 30 -400 (ng/mL) Final Performing Location [facility] - [address] [place] [address]
--- OUTSIDE RECORDS SUMMARY | 2023-04-26 20:18 | External Medical Summary ---
Author Name Unknown Address Unknown Organization [id number]:[facility] [place] [address] Laboratory Report Ordering Provider Test Date Status NAKUL GASTELUM 04/04/2023 07:58:06 Final Observation Date Value Abnormality Reference (Units ) Status WBC, Total 04/04/2023 07:58:06 5.39 4.00-10.8 0 (K/uL) Final RBC 04/04/2023 07:58:06 4.78 4.50-5.25 (M/uL) Final Hemoglobin 04/04/2023 07:58:06 14.8 14.0-16.8 (g/dL) Final HCT 04/04/2023 07:58:06 44.2 40.0-48.4 (%) Final MCV 04/04/2023 07:58:06 92.5 82.0-99.5 (fL) Final MCH 04/04/2023 07:58:06 31.0 27.0-34.0 (pg) Final MCHC 04/04/2023 07:58:06 33.5 32.0-36.0 (g/dL) Final RDW 04/04/2023 07:58:06 13.1 11.5-15.5 (%) Final Platelets 04/04/2023 07:58:06 185 140-400 (K /uL) Final MPV 04/04/2023 07:58:06 9.7 6.6-11.1 ( fL) Final Performing Location [facility] [place] [address]
--- OUTSIDE RECORDS SUMMARY | 2023-04-26 20:18 | External Medical Summary | Summary of Care ---
Author Name Unknown Organization [facility] Address [address] [place] [address] Phone [phone] Care Team Providers Care Car Inspection And Repair Manager Name Role Phone Milagro Nava DO Primary Care Provider Reason for Visit * Reason Onset Date Comments Order Request 03/22/2023 LABS Encounter Details Date Type Department Care Team (Late st Contact Info) Description 03/22/2023 Telephone Family Practice [facility] [address] [place] [address] Milagro Nava DO [address] [facility] [place] [id number] Order Request (LABS ) Allergies No known active allergiesdocumented as of this encounter (statuses as of 03/22/2023) Medications Medication Sig Dispensed Refills Start Date [...] as of this encounter (statuses as of 03/22/2023) Active Problems Problem Noted Date Diagnosed Date Herniated disc, cervical documented as of this encounter (statuses as of 03/22/2023) Resolved Problems Problem Noted Date Diagnosed Date Resolved Date Abdominal pain, generalized 10/04/2017 documented as of this encounter (statuses as of 03/22/2023) Immunizations Name Administration Dates Next Due COVID-19 [...] encounter Miscellaneous Notes * Telephone Encounter - Lydia Adrian LPN [...] documented in this encounter Plan of Treatment Scheduled Procedures Name Priority Associated Diagnoses Date/Ti [...] filedocumented as of this encounter Care Teams Car Inspection And Repair Manager Relationship Specialty Start Date End Date Milagro Nava DO [address] [place] [address] PCP - General Family Medicine 10/04/17 documented as of this encounter
--- OUTSIDE RECORDS SUMMARY | 2023-04-26 20:18 | External Medical Summary ---
Author Name Unknown Address Unknown Organization [id number]:[facility] - [address] [place] [address] Laboratory Report Ordering Provider Test Date Status NAKUL GASTELUM 04/04/2023 07:58:06 Final Observation Date Value Abnormality Reference (Units ) Status Vitamin B12 04/04/2023 07:58:06 1675 Above high normal 232-1245 (pg/mL) Final Performing Location [facility] - [address] [place] [address]
--- OUTSIDE RECORDS SUMMARY | 2023-04-26 20:18 | External Medical Summary | Summary of Care ---
Author Name Unknown Organization [facility] Address [address] [place] [address] Phone [phone] Care Team Providers Care Vascular Surgeon Name Role Phone Brandy Milagro Perezberchris GRIGGS Primary Care Provider Reason for Visit * Reason Comments Acute The pt stated he has had pain in his L ear for approx 3-4 weeks Encounter Details Date Type Department Care Team (Late st Contact Info) Description 04/03/2023 6:40 PM EST Office Visit General Internal Medicine [facility] [address] [place] [address] Leona Arnold MD [address] [place] [address] Bilateral impacted cerumen*; Decreased hearing of left ear Allergies No known active allergiesdocumented as of this encounter (statuses as of 04/03/2023) Medications Medication Sig Dispensed Refills Start Date [...] every 3 days 120 mL 5 12/02/2020 04/03/2023 Discontinued documented as of this encounter (statuses as of 04/03/2023) Active Problems Problem Noted Date Diagnosed Date Herniated disc, cervical documented as of this encounter (statuses as of 04/03/2023) Resolved Problems Problem Noted Date Diagnosed Date Resolved Date Abdominal pain, generalized 10/04/2017 documented as of this encounter (statuses as of 04/03/2023) Immunizations Name Administration Dates Next Due COVID-19 [...] on file documented as of this encounter Last Filed Vital Signs Vital Sign Reading Time Taken Comments Blood Pressure 128/88 04/03/2023 6:46 PM EST Pulse 64 04/03/2023 6:46 PM EST Temperature 36.4 C (97.6 F) 04/03/2023 6:46 PM ES T Respiratory Rate - - Oxygen Saturation 95% 04/03/2023 6:46 PM EST Inhaled Oxygen Concentration - - Weight 117.4 kg (258 lb 14.4 oz) 04/03/2023 6:46 PM EST Height - - Body Mass Index 39.37 08/22/2021 2:19 PM EDT documented in this encounter Functional Status Functional Status Response [...] No 02/10/2021 documented as of this encounter Progress Notes * Leona Arnold MD - 04/03/2023 7:07 PM EST SUBJECTIVE: Lucio Schmidt is a 57 year old male. Chief Complaint Patient presents with Acute The pt stated he has had pain in his L ear for approx 3-4 weeks HPI: Patient presents today for acute appointment with symptoms of decreased hearing with a dull ache in his left ear for the last 2 weeks, also has slight decreased hearing of the right ear but denies any pain. No runny nose sore throat fever or chills. No discharge from the ears. History of wax buildup and had his ears flushed many years ago. Discuss vaccines due, he defers. Immunization History Administered Date(s) Administered COVID-19 mRNA, LNP-s, No Preserve, 2-Dose Series (Pfizer) 05/27/2020, 06/20/2020, 04/24/2021 Rabies Vaccine (Rabavert) 11/02/2015, 11/05/2015 TDAP (age 11 and older)(Adacel) 10/18/2008 Patient Active Problem List Diagnosis Code Herniated disc, cervical M50.20 Current Outpatient Medications Medication Sig Dispense Refill ibuprofen (MOTRIN) 600 MG Tablet Take 1 Tablet by mouth in the morning. Takes 600 MG, 2-3 times a day as needed.. Omeprazole 20 MG Oral Capsule Delayed Release (PriLOSEC) TAKE 1 CAPSULE BY MOUTH DAILY, TAKE 1 HOURBEFORE THE FIRST MEAL OF THE DAY 30 Cap 5 No current facility-administered medications for this visit. Review of patient's allergies indicates: No Known Allergies OBJECTIVE: BP 128/88 | Pulse 64 | Temp 36.4 C (97.6 F) | Wt 117.4 kg (258 lb 14.4 oz) | SpO2 95% | BMI 39.37 kg/m | BSA 2.37 m PHYSICAL EXAM: General: alert, healthy, no distress, well developed Neck: supple, no adenopathy Ears: pinna normal shape and color, canals obscured by cerumen [id number] and crusty, right less crusty Nose: no mucosal erythema, no mucosal edema and no purulent discharge Mouth: no erythema/pnd ASSESSMENT/PLAN: Bilateral impacted cerumen (Primary) Decreased hearing of left ear Advised to use otc Debrox and use as directed. handouts given Follow Up: Return if symptoms worsen or fail to improve. (This note was completed using the dictation program Fluency Direct. As such, there may be misspellings, word substitutions, or other variations that should not change the essence of the clinical content of this encounter note. If there is need for further clarification, please direct questions to the provider listed above.) Patient and / caregiver verbalize understanding of above instructions and agrees with plan of care. Leona Arnold MD 04/03/2023 documented in this encounter Nursing Notes * Dave Randall LPN - 04/03/2023 6:46 PM EST Chief Complaint Patient presents with Acute The pt stated he has had pain in his L ear for approx 3-4 weeks documented in this encounter Miscellaneous Notes * Pt Handout (on AVS) - Leona Arnold MD - 04/03/2023 7:11 PM EST [id number] Impacted Earwax Impacted earwax is a buildup of the natural wax in the ear. Impacted earwax is very common. It can cause symptoms such as hearing loss. It can also make it hard for a healthcare provider to check your ear. Understanding earwax Tiny glands in your ear make substances that combine with skin cells to form earwax. Earwax helps protect your ear canal from water, dirt, infection, and injury. Over time, earwax travels from the inner part of your ear canal to the entrance of the canal. Then it falls away naturally. But in some cases, it can?t travel to the entrance of the canal. This may be because of a health condition or objects put in the ear. With age, earwax tends to become harder and less fluid. Older adults are more likely to have problems with earwax buildup. What causes impacted earwax? Earwax can build up because of many health conditions. Some cause a physical blockage. Others causetoo much earwax to be made. Health conditions that can cause earwax buildup include: Bony blockage in the ear (osteoma or exostoses) Infections, such as an outer ear infection (external otitis) Skin disease, such as eczema Autoimmune diseases, such as lupus A narrowed ear canal from , chronic inflammation, or injury Too much earwax because of injury Too much earwax because of water in the ear canal Putting objects in the ear again and again can also cause impacted earwax. For example, putting cotton swabs in the ear may push the wax deeper into the ear. Over time, this may cause blockage. Hearing aids, swimming plugs, and swim molds can also cause this problem when used again and again. In some cases, the cause of impacted earwax is not known. Symptoms of impacted earwax Excess earwax often does not cause any symptoms, unless there is a large amount of buildup. Then itmay cause symptoms such as: Hearing loss Earache Sense of ear fullness Itching in the ear Odor from the ear Ear drainage Dizziness Ringing in the ears Cough Treatment for impacted earwax If you don?t have symptoms, you may not need treatment. Often the earwax goes away on its own with time. If you have symptoms, you may have one or more treatments such as: Ear drops to soften the earwax. This helps it leave the ear over time. Rinsing the ear canal with water. This is done in a healthcare provider?s office. Removing the earwax with small tools. This is also done in a provider?s office. In rare cases, some treatments for earwax removal may cause complications such as: Outer ear infection Earache Short-term hearing loss Dizziness Water trapped in the ear canal Hole in the eardrum Ringing in the ears Bleeding from the ear Talk with your healthcare provider about which risks apply most to you. Caution Healthcare providers don't advise using ear candles or ear vacuum kits. These methods are not shownto work and may cause more problems. Preventing impacted earwax You may not be able to prevent impacted earwax if you have a health condition that causes it, such as eczema. In other cases, you may be able to prevent earwax buildup by: Using ear drops once a week Having a regular ear cleaning about every 6 months Not using cotton swabs in the ear When to call the healthcare provider Call your healthcare provider right away if you have: Symptoms of impacted earwax Severe symptoms after earwax removal, such as bleeding or severe ear pain Last Reviewed Date: 07/04/202119997973-4858 The [employer]. All rights reserved. This information is not intended as a substitute for professional medical care. Always follow your healthcare professional's instructions. documented in this encounter Plan of Treatment [...] Screening 04/14/2021 04/14/2020 COVID-19 Vaccine ( - 2022-24 season) 2023 04/24/2021, 06/20/2020, 05/27/2020 Influenza Vaccine [...] as of this encounter Visit Diagnoses Diagnosis Bilateral impacted cerumen- Primary Impacted cerumen Decreased hearing of left ear documented in this encounter Care Teams Vascular Surgeon Relationship Specialty Start Date End Date Milagro Nava DO [address] [place] [address] PCP - General Family Medicine 10/04/17 documented as of this encounter"
--- OUTSIDE RECORDS SUMMARY | 2023-04-26 20:18 | External Medical Summary ---
Author Name Unknown Address Unknown Organization [id number]:[facility] [place] [address] [place] [facility] [address] Laboratory Report Ordering Provider Test Date Status NAKUL GASTELUM 04/04/2023 07:58:06 Final Observation Date Value Abnormality Reference (Units ) Status HbA1C 04/04/2023 07:58:06 5.3 4.0-5.6 (% ) Final The use of HbA1c to monitor glycemic status is based on normal hemoglobin and HbA composition. This test should not be used in patients with abnormal hemoglobin that affects the half life of the red blood cell or the in vivo glycation rates. Glucose, estimated average 04/04/2023 07:58:06 105 <126 (mg/dL) Final Performing Location [facility] [place] [facility] [address] [facility] [address]
--- NOTE | 2023-04-26 20:19 | History & Physical Report ---
Date of Service April 26, 2023 Assessment & Plan (1) Sepsis: Plan: 58-year-old male with no significant past medical history presents with high fevers starting last Saturday. Fevers were running as high as 104 F at home. He was also having nausea, vomiting and diarrhea. Poor appetite. Today started develop some slight cough. Has some Abdominal discomfort. Was drinking only Gatorade. Denies any headache. No neck pain. Able to flex and move his neck okay. No chest pain or shortness of breath. Not micturating much. 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 But as per no tick bite seen on the patient. Patient is very drowsy. Wakes up to answer some questions and goes back to sleep. states he is sleeping all day today. Speech seemed somewhat slurred today and she was worried about stroke .No recent travel outside the . Visited [facility] recently. No exposure to TB. Sepsis Encephalopathy Right upper lobe pneumonia Having fevers, leukocytosis and tachycardia Elevated procalcitonin Lactic acid was okay to 1.5 Received Zosyn and azithromycin in the ER Will continue Zosyn and doxycycline for now IV fluids Follow cultures Respiratory bio fire negative Lyme screen, anaplasmosis and babesiosis screen negative CT chest shows right upper lobe pneumonia CT abdomen pelvis. No acute abnormalities. Nonspecific peritoneal stranding without definite acute abnormality Close monitor Cavitary lesion Chest x-ray shows 5.5 cm right midlung masslike opacity possible cavitary But CT chest shows consolidation TB studies ordered in the ER Will consult pulmonary for further recommendations Possible UTI On Zosyn Will follow cultures Hyponatremia Sodium 129 Getting fluids Follow repeat labs DVT prophylaxis Lovenox Disposition Telemetry floor Full code History of Present Illness Chief Complaint: Fevers Primary Care Provider: Milagro Nava DO 58-year-old male with no significant past medical history presents with high fevers starting last Saturday. Fevers were running as high as 104 F at home. He was also having nausea, vomiting and diarrhea. Poor appetite. Today started develop some slight cough. Has some Abdominal discomfort. Was drinking only Gatorade. Denies any headache. No neck pain. Able to flex and move his neck okay. No chest pain or shortness of breath. Not micturating much. 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 But as per no tick bite seen on the patient. Patient is very drowsy. Wakes up to answer some questions and goes back to sleep. states he is sleeping all day today. Speech seemed somewhat slurred today and she was worried about stroke .No recent travel outside the . Visited [facility] recently. No exposure to TB. Past medical history. As mentioned above Past surgical history. Colonoscopy. EGD. Extraction of tooth. Mohs repair right eyelid. Appendectomy. Social history. . No smoking. No alcohol use. No drug use. Family history. Father had COPD. Mother had a brain and breast cancer. Thyroid disorder. Sister had lung transplants. Anal cancer. Maternal grandmother diabetes. Maternal grandfather had heart disorder. Allergies Allergy/AdvReac Type Severity Reaction Status Date / Time No Known Allergies Allergy Verified 04/26/23 16:07 Home Medications Medication Instructions Recorded Confirmed Type omeprazole 20 mg capsule,delayed 20 mg PO DAILYBB 01/23/18 04/26/23 History release ondansetron HCl 4 mg tablet 4 mg PO Q8H PRN Nausea 04/26/23 04/26/23 History Past Med/Surg History Medical History Arthritis Cervical disc disease GERD (gastroesophageal reflux disease) History of Mohs micrographic surgery for skin cancer Hx of basal cell carcinoma Left inguinal hernia Obesity Surgical History History of carpal tunnel release History of esophagogastroduodenoscopy (EGD) History of tooth extraction Hx of adenoidectomy Hx of appendectomy Hx of colonoscopy Family History Mother Breast cancer Cancer Sister Colorectal cancer Aunt Diabetes Grandfather Heart disease Other No family history of adverse response to anesthesia Social History Smoking Status: Never smoker Second Hand Exposure: No; Do You Dip or Chew Tobacco: No; Hx Alcohol Use: No Hx Substance Use: No Preferred Language: Eritrean Communication Ability: Effective Coroner Forensic Technician Required: No Beliefs That Will Affect Care: None marital status: Current Living Situation: Spouse 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 Lungs- clear to auscultation no wheezing or crackles. Heart- regular rhythm; no murmur, no gallop. Abdomen- normal bowel sounds, soft, nontender, no distension. Extremities- no pretibial edema, no erythema seen. Neuro- Drowsy, PERRL no facial palsy; no dysarthria; motor 5/5 bilaterally; coordination of movements normal, no pronator drift. Skin- warm & dry Results & Data Results & Data Vital Signs (Past 12 Hours) Vital Signs Temp Pulse Pulse Resp BP BP Pulse Ox 04/26/23 19:30 95 H 22 123/83 95 04/26/23 18:31 103 H 26 H 132/96 98 04/26/23 18:25 37.2 C 04/26/23 17:00 112 H 18 132/96 98 04/26/23 15:30 106 H 18 159/70 H 93 04/26/23 15:02 103 H 22 155/82 H 93 04/26/23 14:41 87 L 04/26/23 14:35 38.4 C H 102 H 20 144/91 H 87 L 04/26/23 14:35 103 H O2 Del Method O2 Flow Rate 04/26/23 19:30 Room Air 04/26/23 18:31 Room Air 04/26/23 18:25 04/26/23 17:00 Room Air 04/26/23 15:30 Room Air 04/26/23 15:02 Nasal Cannula 3 04/26/23 14:41 Nasal Cannula 0 04/26/23 14:35 Room Air 04/26/23 14:35 Diagnostic Findings Laboratory Results WBC 11.78 K/ul (4.8-10.8) H 04/26/23 14:30 RBC 4.64 M/uL (4.70-6.10) L 04/26/23 14:30 Hgb 14.0 g/dl (14.0-18.0) 04/26/23 14:30 Hct 39.3 % (42.0-52.0) L 04/26/23 14:30 MCV 84.7 fL (80.0-100.0) 04/26/23 14:30 MCH 30.2 pg (25.0-34.0) 04/26/23 14:30 MCHC 35.6 g/dL (32.0-36.0) 04/26/23 14:30 RDW Std Deviation 39.9 fL (36.4-46.3) 04/26/23 14:30 RDW Coeff of Rolando 12.9 % (11.5-14.5) 04/26/23 14:30 Plt Count 174 K/uL (130-400) 04/26/23 14:30 MPV 10.7 fL (9.4-12.4) 04/26/23 14:30 Immature Gran % (Auto) 0.5 % 04/26/23 14:30 Neut % (Auto) 82.9 % 04/26/23 14:30 Lymph % (Auto) 5.4 % 04/26/23 14:30 [place] % (Auto) 10.7 % 04/26/23 14:30 Eos % (Auto) 0.2 % 04/26/23 14:30 Baso % (Auto) 0.3 % 04/26/23 14:30 Neut # (Auto) 9.77 K/uL (1.40-6.50) H 04/26/23 14:30 Lymph # (Auto) 0.64 K/uL (1.20-3.40) L 04/26/23 14:30 Independence # (Auto) 1.26 K/uL (0.11-0.59) H 04/26/23 14:30 Eos # (Auto) 0.02 K/uL (0.00-0.50) 04/26/23 14:30 Baso # (Auto) 0.03 K/uL (0.00-0.20) 04/26/23 14:30 Immature Gran # (Auto) 0.06 K/uL (0.01-0.20) 04/26/23 14:30 PT 13.2 Seconds (9.0-12.0) H 04/26/23 14:30 INR 1.2 (0.9-1.1) H 04/26/23 14:30 APTT 29 Seconds (21-31) 04/26/23 14:30 PTT Ratio 1.0 04/26/23 14:30 Sodium 129 mmol/L (136-145) L 04/26/23 14:30 Potassium 3.5 mmol/L (3.5-5.1) 04/26/23 15:51 Chloride 95 mmol/L (98-107) L 04/26/23 14:30 Carbon Dioxide 23 mmol/L (21-32) 04/26/23 14:30 Anion Gap 11 (3-11) 04/26/23 14:30 BUN 16 mg/dl (6-23) 04/26/23 14:30 Creatinine 1.09 mg/dl (0.6-1.4) 04/26/23 14:30 Est Cr Clr Drug Dosing 93.1 ml/min 04/26/23 14:30 Est GFR ( Amer) 85.7 ml/min 04/26/23 14:30 Est GFR (Non-Af Amer) 73.9 ml/min 04/26/23 14:30 BUN/Creatinine Ratio 14.7 (10-20) 04/26/23 14:30 Glucose 168 mg/dl (70-99(Fasting)) H 04/26/23 14:30 Lactate 1.5 mmol/L (0.4-2.0) 04/26/23 17:49 Calcium 8.6 mg/dl (8.6-10.3) 04/26/23 14:30 Total Bilirubin 1.2 mg/dl (0.2-1.0) H 04/26/23 14:30 AST 32 U/L (13-39) 04/26/23 15:51 ALT 28 U/L (7-52) 04/26/23 14:30 Alkaline Phosphatase 58 U/L (34-104) 04/26/23 14:30 Troponin I High Sens 18.0 pg/ml (0-20) 04/26/23 14:30 C-Reactive Protein 31.38 mg/dl (0-0.5) H 04/26/23 14:30 Total Protein 7.3 gm/dl (6.0-8.3) 04/26/23 14:30 Albumin 3.7 gm/dl (3.4-5.0) 04/26/23 14:30 Globulin 3.6 gm/dl (2.5-4.0) 04/26/23 14:30 Albumin/Globulin Ratio 1.0 (0.9-2) 04/26/23 14:30 Procalcitonin 7.66 ng/ml (0-0.5) H 04/26/23 14:30 Urine Color Dark Yellow 04/26/23 18:11 Urine Appearance Clear (Clear) 04/26/23 18:11 Urine pH 5.5 (4.5-7.5) 04/26/23 18:11 Ur Specific [place] > 1.045 (1.000-1.030) H 04/26/23 18:11 Urine Protein 2+ (Negative) H 04/26/23 18:11 Urine Glucose (UA) Negative (Negative) 04/26/23 18:11 Urine Ketones 1+ (Negative) H 04/26/23 18:11 Urine Blood 1+ (Negative) H 04/26/23 18:11 Urine Nitrite Negative (Negative) 04/26/23 18:11 Urine Bilirubin 1+ (Negative) H 04/26/23 18:11 Urine Urobilinogen Negative (Negative) 04/26/23 18:11 Ur Leukocyte Esterase Negative (Negative) 04/26/23 18:11 Urine WBC (Auto) 1-5 /hpf (0-5) 04/26/23 18:11 Urine RBC (Auto) 0-4 /hpf (0-4) 04/26/23 18:11 U Hyaline Cast (Auto) 1-5 /lpf (0-5) 04/26/23 18:11 U Epithel Cells (Auto) 10-20 /lpf (0-5) H 04/26/23 18:11 Urine Bacteria (Auto) 1+ (Negative) H 04/26/23 18:11 Adenovirus (PCR) Not Detected (NotDetected) 04/26/23 14:35 Anaplasma Smear See Comment 04/26/23 14:30 Babesia Smear See Comment 04/26/23 14:30 B. pertussis DNA (PCR) Not Detected (NotDetected) 04/26/23 14:35 B.parapertussis DNA PCR Not Detected (NotDetected) 04/26/23 14:35 Lyme Disease IgG Ab Negative (Negative) 04/26/23 14:30 Lyme Disease IgM Ab Negative (Negative) 04/26/23 14:30 C. pneumoniae DNA (PCR) Not Detected (NotDetected) 04/26/23 14:35 Coronavirus OC43 (PCR) Not Detected (NotDetected) 04/26/23 14:35 Coronavirus HKU1 (PCR) Not Detected (NotDetected) 04/26/23 14:35 Coronavirus 229E (PCR) Not Detected (NotDetected) 04/26/23 14:35 SARS-CoV-2 (PCR) NEGATIVE (Negative) 04/26/23 14:35 SARS-CoV-2 (PCR) Not Detected (NotDetected) 04/26/23 14:35 Coronavirus NL63 (PCR) Not Detected (NotDetected) 04/26/23 14:35 Human Metapneumovir PCR Not Detected (NotDetected) 04/26/23 14:35 Influenza Type A (PCR) Negative (Neg) 04/26/23 14:35 Influenza Type A (PCR) Not Detected (NotDetected) 04/26/23 14:35 Influenza Type B (PCR) Negative (Neg) 04/26/23 14:35 Influenza Type B (PCR) Not Detected (NotDetected) 04/26/23 14:35 M. pneumoniae (PCR) Not Detected (NotDetected) 04/26/23 14:35 Parainfluenza 1 (PCR) Not Detected (NotDetected) 04/26/23 14:35 Parainfluenza 2 (PCR) Not Detected (NotDetected) 04/26/23 14:35 Parainfluenza 3 (PCR) Not Detected (NotDetected) 04/26/23 14:35 Parainfluenza 4 (PCR) Not Detected (NotDetected) 04/26/23 14:35 RSV (RT-PCR) Negative (Neg) 04/26/23 14:35 RSV (PCR) Not Detected (NotDetected) 04/26/23 14:35 Entero/Rhino (PCR) Not Detected (NotDetected) 04/26/23 14:35 Impressions Chest X-Ray 04/26/23 14:39 XR chest 1V portable CLINICAL HISTORY: Shortness of breath. COMPARISON STUDY: Chest radiograph May 12, 2021. FINDINGS: No pneumothorax or pleural effusion is present. Cardiomegaly is unchanged. No evidence for pulmonary edema. A 5.5 cm right midlung mass-like opacity has developed since prior chest radiograph of May 12, 2021. Curvilinear lucency along the superolateral aspect of this abnormality is noted. IMPRESSION: 5.5 cm right midlung mass-like opacity, possibly cavitary. The findings are suspicious for a neoplasm however an infectious process could appear similar. A chest CT with contrast is recommended for further evaluation. ACT 112: Positive. There are findings on this exam that require communication between the performing entity and the patient following Patient Test Result Information Act ([place] Act 112) guidelines. Electronically signed by: Song Alvarado M.D. 04/26/2023 3:25 PM Abdomen/Pelvis CT 04/26/23 16:43 CT abd pelvis IV con only CLINICAL HISTORY: fever, abdominal pain, N/V/D TECHNIQUE: Helical axial images of the abdomen and pelvis were obtained and displayed. Automated dose lowering techniques and/or adjustment according to patient size were utilized for this exam. This exam was performed with intravenous contrast. COMPARISON: Comparison is made to CT abdomen pelvis 02/03/2006 FINDINGS: Lower chest: For findings above the diaphragm, please see CT chest performed same day. Liver: Hepatic steatosis is noted. Gallbladder and biliary tree: No calcified gallstones. Normal caliber wall. No intra- or extrahepatic biliary ductal dilation. Pancreas: Unremarkable, no focal lesions. Spleen: Splenic hypodensity is seen. Adrenals: Unremarkable. Kidneys and ureters: Subcentimeter hypodensities are too small to characterize. Bladder: Unremarkable. Reproductive organs: Unremarkable. Bowel: Diverticulosis is seen without evidence of diverticulitis. A hiatal hernia is seen. Lymph nodes Retroperitoneal: Unremarkable. Pelvic: Unremarkable. Mesenteric: Unremarkable. Peritoneum: There is mild perinephric stranding and minimal peritoneal stranding without luis fluid collection. Vessels: Unremarkable. Abdominal wall: A fat-containing umbilical hernia is seen. Bones: Degenerative changes in the visualized spine. IMPRESSION: No acute abnormalities. Nonspecific peritoneal stranding without definite acute abnormality. ACT 112: Negative or not required by law. Electronically signed by: Laureano Currie M.D. 04/26/2023 6:09 PM Chest CTA 04/26/23 16:43 CT angio chest PE protocol CLINICAL HISTORY: PE TECHNIQUE: Multidetector row helical CT of the chest was performed with angiographic protocol. Coronal and sagittal reformations were obtained. Coronal and sagittal MIPS were obtained from the axial data set and were submitted for review. Automated dose lowering techniques and/or adjustment according to patient size were utilized for this exam. CT DOSE: 3428.33 mGy.cm Comparison: Chest radiograph 04/26/2023 FINDINGS: Lungs and pleura: Right upper lobe consolidation is seen. There is small right pleural effusion with trace bibasilar atelectasis. Heart and pericardium: Heart size is normal. No pericardial effusion. Vessels: No evidence of pulmonary embolism. Mediastinum and rae: Subcentimeter lymph nodes are seen. Chest wall and lower neck: Unremarkable. Abdomen: For findings below the diaphragm, please refer to CT of the abdomen dated the same. Bones: Degenerative changes in the thoracic spine. IMPRESSION: 1. No pulmonary embolus. Consolidation in the right upper lobe likely represents pneumonia, less likely aspiration. 2. Small right pleural effusion. ACT 112: Negative or not required by law. Electronically signed by: Laureano Currie M.D. 04/26/2023 5:44 PM ECG Additional Comments: ECG. Sinus tachycardia 104. Possible left atrial enlargement. Code Status & VTE Plan VTE Prophylaxis Plan VTE Prophylaxis will be ordered: Yes
[2023-04-26] MEDS ORDERED: NITROGLYCERIN SL 0.4 MG/TAB TAB SL PRN (22:09)
[2023-04-26] MEDS: ONDANSETRON INJ 2 MG/ML 2 ML VIAL IV PRN (22:33)
[2023-04-26] MEDS: ENOXAPARIN INJ 40 MG/0.4 ML SYR SQ SCH (22:44)
[2023-04-26] MEDS: DOXYCYCLINE HYCLATE 100 MG in DEXTROSE 5% MINI-B 100 ML IV SCH (22:45)
--- OUTSIDE RECORDS SUMMARY | 2023-04-26 22:46 | External Medical Summary | Summary of Care ---
Author Name Unknown Organization [facility] Address [address] [place] [address] Phone [phone] Care Team Providers Care Technical Planner Name Role Phone Milagro Nava DO Primary Care Provider Reason for Visit * Reason Onset Date Comments Advice 04/26/2023 Encounter Details Date Type Department Care Team (Late st Contact Info) Description 04/26/2023 Telephone Family Practice [facility] [address] [facility] [place] [id number] [facility] DO [facility] [id number] Advice Allergies No known active allergiesdocumented as of this encounter (statuses as of 04/26/2023) Medications Medication Sig Dispensed Refills Start Date [...] as of this encounter (statuses as of 04/26/2023) Active Problems Problem Noted Date Diagnosed Date Herniated disc, cervical documented as of this encounter (statuses as of 04/26/2023) Resolved Problems Problem Noted Date Diagnosed Date Resolved Date Abdominal pain, generalized 10/04/2017 documented as of this encounter (statuses as of 04/26/2023) Immunizations Name Administration Dates Next Due COVID-19 [...] encounter Miscellaneous Notes * Telephone Encounter - Christina Powell LPN - 04/26/2023 1:20 PM EST Handled in separate encounter. * Telephone Encounter - Layne Kulkarni OSA - 04/26/2023 1:08 PM EST Reason for patient's call: req to speak to nurse about medication given and fever fever for 4 days Caller was transferred to Christina at the clinic. Pt hung up while waiting on nurse to take the call, Christina stated will call them back. documented in this encounter Plan of Treatment [...] Depression Screening 04/14/2021 04/14/2020 COVID-19 Vaccine ( season) 2023 04/24/2021, 06/20/2020, 05/27/2020 Influenza Vaccine (FLU shot) (#1) 2023 COLONOSCOPY-EVERY 5 YRS AGES 18-100 07/07/2025 07/07/2020, 07/07/2020, 10/13/2015, Additional history exists Diabetes Screening 04/04/2026 04/04/2023, 1 06/04/2022, 05/15/2021, Additional history exists Lipid Panel 05/15/2026 05/15/2021, [...] filedocumented as of this encounter Care Teams Technical Planner Relationship Specialty Start Date End Date Milagro Nava DO [address] [place] [address] PCP - General Family Medicine 10/04/17 documented as of this encounter
--- OUTSIDE RECORDS SUMMARY | 2023-04-26 22:46 | External Medical Summary | Summary of Care ---
Author Name Unknown Organization [facility] Address [address] [place] [address] Phone [phone] Care Team Providers Care Training Administrator Name Role Phone Milagro Nava DO Primary Care Provider Reason for Visit * Reason Onset Date Comments Advice 04/26/2023 Encounter Details Date Type Department Care Team (Late st Contact Info) Description 04/26/2023 Telephone Family Practice [facility] [place] [phone] [facility] [phone] Advice Allergies No known active allergiesdocumented as [...] filedocumented as of this encounter Care Teams Training Administrator Relationship Specialty Start Date End Date Milagro Nava DO [address] [place] [address] PCP - General Family Medicine 10/04/17 documented as of this encounter
[2023-04-27] MEDS: PIPERACILLIN/TAZOBACTAM 4.5 GM in DEXTROSE 5% MINI-B 100 ML IV SCH ×2 (00:29→08:52)
[2023-04-27] MEDS: ACETAMINOPHEN 325 MG TAB PO PRN ×3 (02:48→20:42)
[2023-04-27] MEDS ORDERED: ACETAMINOPHEN 1,000 MG/100 ML VIAL IV STA (03:15)
[2023-04-27] MEDS ORDERED: PROMETHAZINE HCL 12.5 MG in SODIUM CHLORIDE 0.9% 50 ML IV PRN (03:15)
[2023-04-27 04:46] LABS: Adenovirus F 40/41 PCR Not Detected (NotDetected); Astrovirus PCR Not Detected (NotDetected); Campylobacter PCR Not Detected (NotDetected); Cryptosporidium PCR Not Detected (NotDetected); Cyclospora cayetanensis PCR Not Detected (NotDetected); Entamoeba histolytica PCR Not Detected (NotDetected); Enteroaggregative E.coli(EAEC) Not Detected (NotDetected); Enteropathogenic E.coli (EPEC) Not Detected (NotDetected); Enterotoxigenic E.coli (ETEC) Not Detected (NotDetected); Giardia lamblia PCR Not Detected (NotDetected); Norovirus GI/GII PCR Not Detected (NotDetected); Plesiomonas shigelloides PCR Not Detected (NotDetected); Rotavirus A PCR Not Detected (NotDetected); Salmonella PCR Not Detected (NotDetected); Sapovirus PCR Not Detected (NotDetected); Shiga-like Toxin E.coli (STEC) Not Detected (NotDetected); Shigella/Enteroinvasive E.coli Not Detected (NotDetected); Vibrio cholerae PCR Not Detected (NotDetected); Vibrio species PCR Not Detected (NotDetected); Yersinia enterocolitica PCR Not Detected (NotDetected)
[2023-04-27 06:05] LABS: Basophils # (auto) 0.03 K/uL (0.00-0.20); Basophils % (auto) 0.3 %; Hematocrit (blood only) 35.9 % (42.0-52.0); Hemoglobin 12.8 g/dl (14.0-18.0); Immature Granulocytes # (auto) 0.06 K/uL (0.01-0.20); Immature Granulocytes % (auto) 0.6 %; Lymphocytes # (auto) 0.58 K/uL (1.20-3.40); Lymphocytes % (auto) 5.6 %; Mean Corpuscular Hemoglobin 30.7 pg (25.0-34.0); Mean Corpuscular Hgb Conc 35.7 g/dL (32.0-36.0); Mean Corpuscular Volume 86.1 fL (80.0-100.0); Mean Platelet Volume 10.3 fL (9.4-12.4); Monocytes % (auto) 9.6 %; Neutrophils # (auto) 8.73 K/uL (1.40-6.50); Neutrophils % (auto) 83.9 %; Platelet Count 150 K/uL (130-400); RDW Coefficient of Variation 13.2 % (11.5-14.5); RDW Standard Deviation 41.7 fL (36.4-46.3); Red Blood Count 4.17 M/uL (4.70-6.10)
[2023-04-27 06:17] LABS: Albumin Level 3.3 gm/dl (3.4-5.0); BUN Creatinine Ratio 12.9 (10-20); Bilirubin Direct 0.3 mg/dl (0-0.2); Calcium 8.3 mg/dl (8.6-10.3); Creatinine Clr Calc Pharmacy 101.8 ml/min; Est GFR (African American) 93.9 ml/min; Magnesium 1.7 mg/dl (1.7-2.4); Potassium 3.5 mmol/L (3.5-5.1); Total Protein 6.4 gm/dl (6.0-8.3)
[2023-04-27] MEDS ORDERED: ACETAMINOPHEN 1000 MG/100 ML IV IV ONE (06:20)
[2023-04-27] MEDS: SODIUM CHLORIDE 0.9% 1,000 ML IV SCH ×2 (06:23→16:09)
[2023-04-27] MEDS: PANTOprazole 40 MG TAB PO SCH (06:35)
--- NOTE | 2023-04-27 06:53 | Electrocardiogram Report ---
Test Reason : Blood Pressure : / mmHG Vent. Rate : 104 BPM Atrial Rate : 104 BPM P-R Int : 162 ms QRS Dur : 086 ms QT Int : 320 ms P-R-T Axes : 046 007 022 degrees QTc Int : 420 ms Sinus tachycardia Possible Left atrial enlargement Septal infarct (cited on or before 26-APR-2023) Abnormal ECG When compared with ECG of 12-MAY-2021 18:47, Vent. rate has increased BY 37 BPM Confirmed by Christiano Gamino ([id number]) on 04/27/2023 6:53:14 AM Referred By: Confirmed By:Christiano Gamino
[2023-04-27 08:01] LABS: Base Excess ABG -0.4 mEq/L (-9-1.8); HCO3 ABG 23 mmol/L (19-24); Oxygen Saturation ABG 97.4 % (90-95); PCO2 ABG 33 mmHg (35-46); PO2 ABG 78 mmHg (80-95); pH ABG 7.45 (7.35-7.45)
[2023-04-27 08:04] LABS: Allen Test Pos (Pos)
[2023-04-27] MEDS: DOXYCYCLINE HYCLATE 100 MG in DEXTROSE 5% MINI-B 100 ML IV SCH (11:33)
[2023-04-27] MEDS: ONDANSETRON INJ 2 MG/ML 2 ML VIAL IV PRN (11:39)
--- NOTE | 2023-04-27 12:17 | Critical Care Consultation ---
Date of Consultation April 27, 2023 Assessment & Plan (1) Community acquired pneumonia: MRSA screen negative thus we will not initiate vancomycin. Will discontinue Zosyn and doxycycline. Will initiate levofloxacin to cover for Legionella. Urine Legionella antigen ordered. Notably, patient was hyponatremic and has had profound diarrhea. The symptoms along with pulmonary infiltrate can suggest possible Legionella pneumonia. Less likely Mycobacterium infection. Nontuberculous Mycobacterium infection remains a possibility, but low on the differential. Other atypical organisms are possible such as actinomyces, nocardia, brucellosis and other zoonotic infections given the patient's occupation. Please obtain sputum culture. Percussive vest therapy and hypertonic saline ordered to help with mucociliary clearance. Thank you for the consult. Will follow. (2) Sepsis: Defer to primary team. Patient treated with IV hydration. History of Present Illness Reason for Consultation: Severe pneumonia Attending Physician: Carlie Hilton MD History of Present Illness 58-year-old male with no significant past medical history other than obesity who presented to the hospital due to ongoing fevers since Saturday. He notes he has had fevers upwards of 104 F at home. He also endorses diarrhea. He denies any nausea or vomiting at present. He does endorse increased fatigue and chills. He recently traveled to [facility], but no travel outside of that area for quite some time. 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 He does endorse some sick contacts recently. He was started on broad- spectrum IV antibiotics with significant improvement of his symptoms today. He is now on low-flow oxygen saturating 95%. He does continue to have a temperature of 38 C. He had a chest CTA completed 04/26/2023 which revealed consolidation in the right upper lobe and a small right pleural effusion. I reviewed the radiology report and agree. He is currently receiving Zosyn and doxycycline. MRSA screen negative today. Respiratory bio fire panel was negative. Q uantiFERON gold testing is pending. Stool bio fire was negative. Allergies Allergy/AdvReac Type Severity Reaction Status Date / Time No Known Allergies Allergy Verified 04/26/23 16:07 Home Medications Medication Instructions Recorded Confirmed Type omeprazole 20 mg capsule,delayed 20 mg PO DAILYBB 01/23/18 04/26/23 History release ondansetron HCl 4 mg tablet 4 mg PO Q8H PRN Nausea 04/26/23 04/26/23 History Patient History Medical History (Updated 04/27/23 @ 12:15 by Fredi Potter MD) Community acquired pneumonia Obesity Arthritis Left inguinal hernia "CURRENTLY CAUSING NO ISSUES" GERD (gastroesophageal reflux disease) History of Mohs micrographic surgery for skin cancer BELOW RT EYE Hx of basal cell carcinoma Cervical disc disease Surgical History History of carpal tunnel release History of esophagogastroduodenoscopy (EGD) History of tooth extraction Hx of colonoscopy Hx of appendectomy Hx of adenoidectomy Family History Mother Breast cancer Cancer Sister Colorectal cancer Aunt Diabetes Grandfather Heart disease Other No family history of adverse response to anesthesia Social History Smoking Status: Never smoker Second Hand Exposure: No; Do You Dip or Chew Tobacco: No; Hx Alcohol Use: No Hx Substance Use: No Preferred Language: Ivorian Communication Ability: Effective Plaster Lather Required: No Beliefs That Will Affect Care: None marital status: Current Living Situation: Spouse 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 Disheveled. Obese. Eyes: Pupils are equal round and reactive to light. Conjunctivae are normal. Anicteric sclera. Ears nose, mouth and throat: Mallampati class 2. Normal posterior oropharynx. Uvula is midline. Neck: Trachea is midline. Visual inspection is normal. Respiratory: Coarse rhonchi bilaterally. Diminished. Mild tachypnea. Cardiovascular: Regular rate and rhythm. No murmurs. No edema. Gastrointestinal: Normal bowel sounds, soft, nontender and nondistended. No hepatosplenomegaly noted. Musculoskeletal: No cyanosis. Patient is able to move all extremities. Strength is 5 out of 5 in the upper and lower extremities. Skin: No rashes, warm dry and intact. Neurologic: No obvious focal neurological deficits seen. Psychiatric: Alert and oriented x3 with a euthymic affect. Results & Data Results & Data Vital Signs (Past 12 Hours) Vital Signs Temp Pulse Pulse Resp BP Pulse Ox O2 Del Method 04/27/23 10:46 38.0 C H 91 H 20 128/83 95 Nasal Cannula 04/27/23 09:31 Nasal Cannula 04/27/23 07:40 37.9 C H 91 H 22 108/70 95 Nasal Cannula 04/27/23 06:22 38.7 C H 04/27/23 06:00 92 H 04/27/23 02:51 39.9 C H 109 H 26 H 153/73 H 92 Nasal Cannula O2 Flow Rate 04/27/23 10:46 04/27/23 09:31 2 04/27/23 07:40 2 04/27/23 06:22 04/27/23 06:00 04/27/23 02:51 2 Coding Level of Care Code 28166 IN/OBS CONSULT LVL 5,80M Diagnoses Community acquired pneumonia J18.9 Sepsis A41.9
--- NOTE | 2023-04-27 13:11 | Hospitalist Progress Note ---
Date of Service April 27, 2023 Assessment & Plan (1) Sepsis: Plan: 58-year-old male with no significant past medical history presents with high fevers starting last Saturday. Fevers of upto 104 F at home. Also had nausea, vomiting, diarrhea, Poor appetite Developed cough shortly after. 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 No recent travel outside the . Visited [facility] recently. No exposure t o know TB. Sepsis Encephalopathy: Patient is currently AOx3 Community Acquired Pneumonia (Right upper lobe pneumonia) Having fevers, leukocytosis and tachycardia Elevated procalcitonin 7.66 Normal lactate Tick borne labs (lyme, anaplasma, babesia) are negative Resp PCR is negative Stool PCR is negative Blood and urine cultures in lab TB test in lab CT chest shows right upper lobe pneumonia CT abdomen pelvis. No acute abnormalities. Nonspecific peritoneal stranding without definite acute abnormality Received Zosyn and azithromycin in the ER Discussed with Glass Mold Repairer who has evaluated patient Antibiotics changed to Levofloxacin Check legionella Continue IVF Antiemetics prn Antitussive Monitor QTc Patient's UA does not suggest UTI Hyponatremia Sodium 129 on admission Improved to 134 today Monitor DVT prophylaxis Lovenox Disposition Telemetry floor Full code I spent a total of 55 minutes coordinating, documenting and providing care for this patient excluding time spent in performance of separately billed services Admission and Anticipated Discharge Date Admission Date: April 26, 2023 Subjective Patient seen and examined this morning Was having fever and chills at the time Also reported cough and some nausea. Denied abd pain but reports the nausea feels like burning sensation in upper abd Denied shortness of breath. Reports some chest pain associated only with coughing which is not very productive. Denied dysuria, freq, urgency, hematuria Reports diarrhea over the past few days. No melena or hematochezia Physical Exam Constitutional: + ill appearing and + well hydrated; no acute distress Eyes: PERRL, conjunctivae normal, anicteric sclerae ENMT: external ear and nose normal, oropharynx normal Respiratory: normal respiratory effort; no respiratory distress Diminished breath sounds, +rhonchi. On nasal cannula Cardiovascular: Rate/Rhythm: regular rate and regular rhythm S1 S2 Gastrointestinal (Abdomen): normal bowel sounds, soft, nontender, no hepatosplenomegaly Musculoskeletal: No pedal edema Neurologic: PERRL, EOMI, accommodation nl, no face palsy, no dysarthria Psychiatric: A+Ox3, euthymic affect Results & Data Results & Data Vital Signs (Past 12 Hours) Vital Signs Temp Pulse Pulse Resp BP Pulse Ox O2 Del Method 04/27/23 10:46 38.0 C H 91 H 20 128/83 95 Nasal Cannula 04/27/23 09:31 Nasal Cannula 04/27/23 07:40 37.9 C H 91 H 22 108/70 95 Nasal Cannula 04/27/23 06:22 38.7 C H 04/27/23 06:00 92 H 04/27/23 02:51 39.9 C H 109 H 26 H 153/73 H 92 Nasal Cannula O2 Flow Rate 04/27/23 10:46 04/27/23 09:31 2 04/27/23 07:40 2 04/27/23 06:22 04/27/23 06:00 04/27/23 02:51 2 Laboratory Results Abnormal lab results 04/26/23 04/27/23 04/27/23 Range/Units 18:11 05:35 07:53 RBC 4.17 L (4.70-6.10) M/uL Hgb 12.8 L (14.0-18.0) g/dl Hct 35.9 L (42.0-52.0) % Neut # (Auto) 8.73 H (1.40-6.50) K/uL Lymph # (Auto) 0.58 L (1.20-3.40) K/uL [place] # (Auto) 1.00 H (0.11-0.59) K/uL ABG pCO2 33 L (35-46) mmHg ABG pO2 78 L (80-95) mmHg ABG O2 Saturation 97.4 H (90-95) % Sodium 134 L (136-145) mmol/L Glucose 112 H (70-99(Fasting)) mg/dl Calcium 8.3 L (8.6-10.3) mg/dl Direct Bilirubin 0.3 H (0-0.2) mg/dl Albumin 3.3 L (3.4-5.0) gm/dl Ur Specific [place] > 1.045 H (1.000-1.030) Urine Protein 2+ H (Negative) Urine Ketones 1+ H (Negative) Urine Blood 1+ H (Negative) Urine Bilirubin 1+ H (Negative) U Epithel Cells (Auto) 10-20 H (0-5) /lpf Urine Bacteria (Auto) 1+ H (Negative)
[2023-04-27] MEDS: levoFLOXacin/D5W 750 MG/150 ML BAG IV SCH (14:02)
[2023-04-27] MEDS: PROMETHAZINE HCL 6.25 MG in SODIUM CHLORIDE 0.9% 50 ML IV PRN (16:09)
[2023-04-27] MEDS: guaiFENesin 600 MG TABCR PO SCH ×2 (16:10→20:42)
[2023-04-27] MEDS: SODIUM CHLOR 7% 4 ML NEB NEB SCH (19:57)
[2023-04-27] MEDS: FAMOTIDINE 20 MG TAB PO SCH (20:42)
[2023-04-27] MEDS ORDERED: ONDANSETRON INJ 2 MG/ML 2 ML VIAL IV STA (20:49)
[2023-04-27] MEDS: ENOXAPARIN INJ 40 MG/0.4 ML SYR SQ SCH (21:20)
[2023-04-28] MEDS: SODIUM CHLORIDE 0.9% 1,000 ML IV SCH ×4 (00:31→18:28)
[2023-04-28] MEDS: PANTOprazole 40 MG TAB PO SCH (06:19)
[2023-04-28] MEDS: SODIUM CHLOR 7% 4 ML NEB NEB SCH ×2 (07:02→18:04)
[2023-04-28] MEDS: guaiFENesin 600 MG TABCR PO SCH ×2 (07:39→21:33)
[2023-04-28] MEDS: ACETAMINOPHEN 325 MG TAB PO PRN (07:39)
[2023-04-28 08:47] LABS: Hematocrit (blood only) 36.5 % (42.0-52.0); Hemoglobin 12.6 g/dl (14.0-18.0); Mean Corpuscular Hgb Conc 34.5 g/dL (32.0-36.0); Mean Corpuscular Volume 86.9 fL (80.0-100.0); Mean Platelet Volume 10.7 fL (9.4-12.4); Platelet Count 159 K/uL (130-400); RDW Coefficient of Variation 13.4 % (11.5-14.5); RDW Standard Deviation 42.7 fL (36.4-46.3); White Blood Count 8.47 K/ul (4.8-10.8)
--- NOTE | 2023-04-28 08:52 | Pulmonology Progress Note ---
Date of Service April 28, 2023 Assessment & Plan (1) Community acquired pneumonia: (2) Sepsis: (3) Acute respiratory failure with hypoxia: Plan CT chest 04/26/2023 personally reviewed: Dense consolidative process appreciated in the right upper lobe Small right-sided pleural effusion No significant mediastinal lymphadenopathy -- Acute hypoxic respiratory failure Secondary to pneumonia Had diarrhea and hyponatremic on presentation. 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 Respiratory bio fire negative for everything on 04/26/2023 Nasal MRSA negative Procalcitonin 7.66--> 5.29 -- Probable JOSE Recommend BiPAP nightly and as needed shortness of breath Plan: Brovana and budesonide will be added to the patient's regiment for the wheezing Flutter valve to be added Continue with hypertonic saline nebulized Nasal Flonase Follow-up chest x-ray from today Case was discussed with Dr. Hilton Please note the above document was generated using voice recognition software. It may contain grammatical, syntax or spelling errors.Any formal questions or concerns about the content, text or information contained within the body of this dictation should be directly addressed to the provider for clarification. Admission and Anticipated Discharge Date Admission Date: April 26, 2023 Subjective Patient seen and examined at bedside. Case was discussed with outgoing supervisor production department At the time of examination patient was saturating 96% on 2 L nasal cannula. I went down to 1 L and he was still saturating 92-93% He is still complaining of cough bringing up clear phlegm. Denies any nausea or vomiting Overall he says he is feeling better. Has been using chest vest No headache, no blurry vision No nausea vomiting Appetite is poor Review of Systems 2 Review of Systems: All systems reviewed & are unremarkable except as noted in Subjective Physical Exam 2 Physical Exam: Constitutional: No acute distress HEENT: EOMI, PERRLA Respiratory system: Decreased air entry on the right side, crackles as well as rhonchi appreciated on the right side anteriorly and posteriorly, minimal expiratory wheeze bilaterally CVS: S1-S2 positive, no murmurs or gallops Abdomen: Soft, nontender, nondistended, positive bowel sounds x4, obese Extremities: +2 pulses bilaterally radialis/ dorsalis pedis, no cyanosis, no edema Neuro: Awake alert oriented x3 Psych: Normal mood and affect G/U: No [place] Skin: no rashes, warm and dry Lymphatic: no cervical or axillary lymphadenopathy Results & Data Results & Data Vital Signs (Past 12 Hours) Vital Signs Temp Pulse Pulse Resp BP Pulse Ox Pulse Ox 04/28/23 08:36 04/28/23 08:02 39.0 C H 93 H 23 137/79 97 04/28/23 07:10 92 H 04/28/23 07:03 95 H 22 92 04/28/23 06:00 37.6 C 04/28/23 03:32 38.0 C H 104 H 38 H 149/74 H 90 04/27/23 23:59 37.3 C 94 H 37 H 133/70 94 04/27/23 22:09 94 04/27/23 22:07 92 H 04/27/23 21:00 O2 Del Method O2 Del Method O2 Flow Rate O2 Flow Rate 04/28/23 08:36 Nasal Cannula 2 04/28/23 08:02 Nasal Cannula, Nebulizer 3 04/28/23 07:10 04/28/23 07:03 Nasal Cannula 2 04/28/23 06:00 04/28/23 03:32 Nasal Cannula 3 04/27/23 23:59 Nasal Cannula 3 04/27/23 22:09 Nasal Cannula 2 04/27/23 22:07 04/27/23 21:00 Nasal Cannula 2 Laboratory Results 04/28/23 07:44 PG Care Time/CCT Total # of Minutes Spent Total Time Spent with Patient: Total time spent is greater than 50% in coordination of care (as documented) at patient's floor/unit and/or counseling patient: Coding Level of Care Code 41699 SUB INP/OBS CARE 3/50MIN Diagnoses Community acquired pneumonia J18.9 Sepsis A41.9 Acute respiratory failure with hypoxia J96.01
[2023-04-28 08:53] LABS: BUN Creatinine Ratio 12.4 (10-20); Calcium 8.5 mg/dl (8.6-10.3); Creatinine Clr Calc Pharmacy 115.4 ml/min; Est GFR (African American) 108.5 ml/min; Est GFR (Non-African American) 93.6 ml/min; Magnesium 1.7 mg/dl (1.7-2.4); Phosphorus 2.2 mg/dl (2.5-4.9); Potassium 3.5 mmol/L (3.5-5.1)
[2023-04-28] MEDS ORDERED: POT PHOSPHATE MONOBASIC W/ SOD TAB PO ONE (12:24)
--- NOTE | 2023-04-28 12:27 | Hospitalist Progress Note ---
Date of Service April 28, 2023 Assessment & Plan (1) Sepsis: Plan: 58-year-old male with no significant past medical history presents with high fevers starting last Saturday. Fevers of upto 104 F at home. Also had nausea, vomiting, diarrhea, Poor appetite Developed cough shortly after. 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 No recent travel outside the . Visited [facility] recently. No exposure t o know TB. Sepsis Encephalopathy: Patient is currently AOx3 Community Acquired Pneumonia (Right upper lobe pneumonia) Having fevers, leukocytosis and tachycardia Elevated procalcitonin 7.66 Normal lactate Tick borne labs (lyme, anaplasma, babesia) are negative Resp PCR is negative Stool PCR is negative Blood and urine cultures in lab TB test in lab Legionella test in lab CT chest shows right upper lobe pneumonia CT abdomen pelvis. No acute abnormalities. Nonspecific peritoneal stranding without definite acute abnormality Received Zosyn and azithromycin in the ER and then changed to levofloxacin Discussed with Strategy Lead Dr Santamaria today Continue levofloxacin Pulm added budesonide and formoterol nebs. Continue guaifenesin q12h, tessalon perrles Continue IVF. Rate reduced to 100/h Patient's UA does not suggest UTI UCx negative Hyponatremia Sodium 129 on admission Improved to 133 today Monitor Replete hypophosphatemia and monitor DVT prophylaxis Lovenox Disposition Telemetry floor Full code I updated patient and at bedside I spent a total of 50 minutes coordinating, documenting and providing care for this patient excluding time spent in performance of separately billed services Admission and Anticipated Discharge Date Admission Date: April 26, 2023 Subjective Patient seen and examined Still having fevers Still has cough Denied shortness of breath Denied nausea, vomiting, abd pain Still having diarrhea. No melena or hematochezia Denied dysuria, freq, hematuria. reported he had some urinary urgency/ incontinence when he could not hold it to get the urinal. Physical Exam Constitutional: + ill appearing and + well hydrated; no acute distress Eyes: PERRL, conjunctivae normal, anicteric sclerae ENMT: external ear and nose normal, oropharynx normal Respiratory: normal respiratory effort; no respiratory distress Diminished breath sounds and crackles on right lung On nasal cannula Cardiovascular: Rate/Rhythm: regular rate and regular rhythm S1 S2 Gastrointestinal (Abdomen): normal bowel sounds, soft, nontender, no hepatosplenomegaly Musculoskeletal: No pedal edema Neurologic: PERRL, EOMI, accommodation nl, no face palsy, no dysarthria Psychiatric: A+Ox3, euthymic affect Results & Data Results & Data Vital Signs (Past 12 Hours) Vital Signs Temp Pulse Pulse Resp BP Pulse Ox O2 Del Method 04/28/23 08:36 Nasal Cannula 04/28/23 08:02 39.0 C H 93 H 23 137/79 97 Nasal Cannula, Nebulizer 04/28/23 07:10 92 H 04/28/23 07:03 95 H 22 92 Nasal Cannula 04/28/23 06:00 37.6 C 04/28/23 03:32 38.0 C H 104 H 38 H 149/74 H 90 Nasal Cannula O2 Flow Rate 04/28/23 08:36 2 04/28/23 08:02 3 04/28/23 07:10 04/28/23 07:03 2 04/28/23 06:00 04/28/23 03:32 3 Laboratory Results Abnormal lab results 04/28/23 Range/Units 07:44 RBC 4.20 L (4.70-6.10) M/uL Hgb 12.6 L (14.0-18.0) g/dl Hct 36.5 L (42.0-52.0) % Sodium 133 L (136-145) mmol/L Glucose 107 H (70-99(Fasting)) mg/dl Calcium 8.5 L (8.6-10.3) mg/dl Phosphorus 2.2 L (2.5-4.9) mg/dl Procalcitonin 5.29 H (0-0.5) ng/ml
--- NOTE | 2023-04-28 12:34 | XRay Report ---
XR chest 1V portable HISTORY: Shortness of breath. Follow-up right upper lobe opacity. COMPARISON: Chest CTA 04/26/2023. FINDINGS: Dense right upper lobe consolidation again noted. No pneumothorax. No pleural effusions. Th e heart remains enlarged. The left lung is clear. No acute fractures. IMPRESSION: Persistent dense consolidation within the right upper lobe. This favors a pneumonia. Follow-up recomm ended to ensure complete resolution and to exclude the possibility of underlying pulmonary lesion. ACT 112: Negative or not required by law. Electronically signed by: Mihir Finley M.D. 04/28/2023 12:33 PM
[2023-04-28] MEDS: FLUTICASONE PROPIONATE NA SPR 16 GM BTL SCH (12:54)
[2023-04-28] MEDS: levoFLOXacin/D5W 750 MG/150 ML BAG IV SCH (13:39)
[2023-04-28 14:27] LABS: Quantiferon Mitogen-NIL 1.07 IU/mL; Quantiferon NIL 0.75 IU/mL; Quantiferon TB Gold Plus NEGATIVE (NEGATIVE); Quantiferon TB1-NIL 0.21 IU/mL; Quantiferon TB2-NIL 0.33 IU/mL
[2023-04-28] MEDS: ACETAMINOPHEN 1,000 MG/100 ML VIAL IV PRN ×2 (15:50→23:09)
[2023-04-28] MEDS: BENZONATATE 100 MG CAPSULE PO PRN ×2 (15:54→23:09)
[2023-04-28] MEDS: PROMETHAZINE HCL 6.25 MG in SODIUM CHLORIDE 0.9% 50 ML IV PRN (16:52)
[2023-04-28] MEDS ORDERED: FORMOTEROL 20 MCG/2 ML VIAL ONE (17:56)
[2023-04-28] MEDS: FORMOTEROL 20 MCG/2 ML VIAL INH SCH (18:04)
[2023-04-28] MEDS: BUDESONIDE 0.5 MG/2 ML VIAL (PULMICORT) NEB SCH (18:04)
[2023-04-28] MEDS: FAMOTIDINE 20 MG TAB PO SCH (21:32)
[2023-04-28] MEDS: ENOXAPARIN INJ 40 MG/0.4 ML SYR SQ SCH (21:33)
[2023-04-29] MEDS: BENZONATATE 100 MG CAPSULE PO PRN ×2 (03:13→21:02)
[2023-04-29] MEDS: SODIUM CHLORIDE 0.9% 1,000 ML IV SCH ×3 (03:15→23:56)
[2023-04-29] MEDS: PANTOprazole 40 MG TAB PO SCH (05:45)
[2023-04-29] MEDS ORDERED: HYDROcodone/HOMATROPINE SYRUP 5MG/1.5MG 5ML UDP PO STA (06:06)
--- NOTE | 2023-04-29 06:07 | Electrocardiogram Report ---
Test Reason : Blood Pressure : / mmHG Vent. Rate : 091 BPM Atrial Rate : 091 BPM P-R Int : 168 ms QRS Dur : 086 ms QT Int : 324 ms P-R-T Axes : 055 036 023 degrees QTc Int : 398 ms Normal sinus rhythm Low voltage QRS Cannot rule out Anterior infarct (cited on or before 26-APR-2023) Abnormal ECG When compared with ECG of 26-APR-2023 14:47, No significant change was found Confirmed by Dominic Armando ([id number]) on 04/29/2023 6:06:36 AM Referred By: REFERRED SELF Confirmed By:Dominic Armando
[2023-04-29 06:22] LABS: Hematocrit (blood only) 35.7 % (42.0-52.0); Hemoglobin 12.4 g/dl (14.0-18.0); Mean Corpuscular Hemoglobin 30.3 pg (25.0-34.0); Mean Corpuscular Hgb Conc 34.7 g/dL (32.0-36.0); Mean Corpuscular Volume 87.3 fL (80.0-100.0); Mean Platelet Volume 10.3 fL (9.4-12.4); Platelet Count 151 K/uL (130-400); RDW Coefficient of Variation 13.4 % (11.5-14.5); RDW Standard Deviation 43.4 fL (36.4-46.3); Red Blood Count 4.09 M/uL (4.70-6.10); White Blood Count 6.69 K/ul (4.8-10.8)
--- NOTE | 2023-04-29 06:23 | Electrocardiogram Report ---
Test Reason : Blood Pressure : / mmHG Vent. Rate : 093 BPM Atrial Rate : 093 BPM P-R Int : 164 ms QRS Dur : 088 ms QT Int : 328 ms P-R-T Axes : 056 046 030 degrees QTc Int : 407 ms Normal sinus rhythm Anterior infarct (cited on or before 26-APR-2023) Abnormal ECG When compared with ECG of 27-APR-2023 16:28, (unconfirmed) No significant change was found Confirmed by Dominic Armando ([id number] on 04/29/2023 6:23:35 AM Referred By: REFERRED SELF Confirmed By:Dominic Armando
[2023-04-29 06:27] LABS: BUN Creatinine Ratio 13.3 (10-20); Calcium 8.2 mg/dl (8.6-10.3); Creatinine Clr Calc Pharmacy 137.6 ml/min; Est GFR (African American) 116.4 ml/min; Est GFR (Non-African American) 100.4 ml/min; Magnesium 1.6 mg/dl (1.7-2.4); Phosphorus 3.1 mg/dl (2.5-4.9); Potassium 3.4 mmol/L (3.5-5.1)
[2023-04-29] MEDS: ACETAMINOPHEN 1,000 MG/100 ML VIAL IV PRN ×2 (07:29→16:25)
[2023-04-29] MEDS: BUDESONIDE 0.5 MG/2 ML VIAL (PULMICORT) NEB SCH ×2 (07:36→20:15)
[2023-04-29] MEDS: FORMOTEROL 20 MCG/2 ML VIAL INH SCH ×2 (07:36→20:15)
[2023-04-29] MEDS: SODIUM CHLOR 7% 4 ML NEB NEB SCH ×2 (07:36→20:31)
[2023-04-29] MEDS ORDERED: POTASSIUM CHLORIDE CRTAB 20 MEQ TABCR PO STA (07:41)
[2023-04-29] MEDS ORDERED: MAGNESIUM SULFATE / D5W 1 GM/100 ML BAG IV ONE (07:41)
--- NOTE | 2023-04-29 07:41 | Pulmonology Progress Note ---
Date of Service April 29, 2023 Assessment & Plan (1) Community acquired pneumonia: (2) Sepsis: (3) Acute respiratory failure with hypoxia: Plan CT chest 04/26/2023 personally reviewed: Dense consolidative process appreciated in the right upper lobe Small right-sided pleural effusion No significant mediastinal lymphadenopathy -- Acute hypoxic respiratory failure Secondary to pneumonia Had diarrhea and hyponatremic on presentation. 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 Respiratory bio fire negative for everything on 04/26/2023 Nasal MRSA negative Procalcitonin 7.66--> 5.29 -- Probable JOSE Recommend BiPAP nightly and as needed shortness of breath Plan: Continue with Brovana and budesonide along with flutter valve Continue with hypertonic saline nebulized Nasal Flonase Case was discussed with Dr. Hilton Please note the above document was generated using voice recognition software. It may contain grammatical, syntax or spelling errors.Any formal questions or concerns about the content, text or information contained within the body of this dictation should be directly addressed to the provider for clarification. Admission and Anticipated Discharge Date Admission Date: April 26, 2023 Subjective Patient seen and examined at bedside. No acute distress, no adverse events overnight Still spiking low-grade fever. Was saturating 92% on room air at the time of examination Saying that the cough is getting loose and he is able to bring up phlegm easier. No hemoptysis No abdominal pain No nausea or vomiting No diarrhea in the last 24 hours Review of Systems 2 Review of Systems: All systems reviewed & are unremarkable except as noted in Subjective Physical Exam 2 Physical Exam: Constitutional: No acute distress HEENT: EOMI, PERRLA Respiratory system: Decreased air entry on the right side, crackles as well as rhonchi appreciated on the right side anteriorly and posteriorly, no wheeze CVS: S1-S2 positive, no murmurs or gallops Abdomen: Soft, nontender, nondistended, positive bowel sounds x4, obese Extremities: +2 pulses bilaterally radialis/ dorsalis pedis, no cyanosis, no edema Neuro: Awake alert oriented x3 Psych: Normal mood and affect G/U: No [place] Skin: no rashes, warm and dry Lymphatic: no cervical or axillary lymphadenopathy Results & Data Results & Data Vital Signs (Past 12 Hours) Vital Signs Temp Pulse Pulse Resp BP Pulse Ox Pulse Ox 04/29/23 07:36 89 18 90 04/29/23 07:35 04/29/23 03:19 37.7 C H 86 24 146/87 H 93 04/28/23 23:39 98 H 35 H 93 04/28/23 23:20 04/28/23 23:00 38.9 C H 107 H 26 H 138/72 92 04/28/23 22:00 104 H 04/28/23 22:00 92 O2 Del Method O2 Del Method O2 Flow Rate O2 Flow Rate 04/29/23 07:36 Nasal Cannula 2 04/29/23 07:35 Nasal Cannula 2 04/29/23 03:19 Nasal Cannula 2 04/28/23 23:39 2 04/28/23 23:20 Nasal Cannula 2 04/28/23 23:00 Nasal Cannula 2 04/28/23 22:00 04/28/23 22:00 Nasal Cannula 2 Laboratory Results 04/29/23 05:37 04/29/23 05:37 PG Care Time/CCT Total # of Minutes Spent Total Time Spent with Patient: Total time spent is greater than 50% in coordination of care (as documented) at patient's floor/unit and/or counseling patient: Coding Level of Care Code 81918 SUB INP/OBS CARE 3/50MIN Diagnoses Community acquired pneumonia J18.9 Sepsis A41.9 Acute respiratory failure with hypoxia J96.01
[2023-04-29] MEDS: FLUTICASONE PROPIONATE NA SPR 16 GM BTL SCH (09:30)
[2023-04-29] MEDS: guaiFENesin 600 MG TABCR PO SCH ×2 (09:31→21:02)
--- NOTE | 2023-04-29 12:26 | Hospitalist Progress Note ---
Date of Service April 29, 2023 Assessment & Plan (1) Sepsis: Plan: 58-year-old male with no significant past medical history presents with high fevers starting last Saturday. Fevers of upto 104 F at home. Also had nausea, vomiting, diarrhea, Poor appetite Developed cough shortly after. 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 No recent travel outside the . Visited [facility] recently. No exposure t o know TB. Sepsis Encephalopathy: Patient is currently AOx3 Community Acquired Pneumonia (Right upper lobe pneumonia) Elevated procalcitonin 7.66 Normal lactate Tick borne labs (lyme, anaplasma, babesia) are negative Resp PCR is negative Stool PCR is negative Blood and urine cultures negative so far TB test negative Legionella test in lab CT chest shows right upper lobe pneumonia CT abdomen pelvis. No acute abnormalities. Nonspecific peritoneal stranding without definite acute abnormality Received Zosyn and azithromycin in the ER and then changed to levofloxacin Discussed with Lens Shaper Grinder Dr Santamaria today Continue levofloxacin Continue budesonide and formoterol nebs. Continue guaifenesin q12h, tessalon perrles Reduced IVF to 80cc/h. Plan to stop once po intake is optimal Patient's UA does not suggest UTI UCx negative Hyponatremia Sodium 129 on admission Improved to 135 today Monitor Replete hypokalemia and hypomagnesemia DVT prophylaxis Lovenox Disposition Telemetry floor Full code I updated patient and at bedside I spent a total of 45 minutes coordinating, documenting and providing care for this patient excluding time spent in performance of separately billed services Admission and Anticipated Discharge Date Admission Date: April 26, 2023 Subjective Patient seen and examined Sitting in chair Reports feeling better More interactive today Still having fevers Reports cough is thinner and more productive Denied shortness of breath Denied nausea, vomiting, abd pain No diarrhea so far today Reports anorexia Denied dysuria, freq, hematuria, incontinence Physical Exam Constitutional: + ill appearing and + well hydrated; no acute distress Eyes: PERRL, conjunctivae normal, anicteric sclerae ENMT: external ear and nose normal, oropharynx normal Respiratory: normal respiratory effort; no respiratory distress On nasal cannula at 2l/min +crackles Right lung zone Cardiovascular: Rate/Rhythm: regular rate and regular rhythm S1 S2 Gastrointestinal (Abdomen): normal bowel sounds, soft, nontender, no hepatosplenomegaly Musculoskeletal: no cyanosis or clubbing, extremities motor strength 5/5 Neurologic: PERRL, EOMI, accommodation nl, no face palsy, no dysarthria Psychiatric: A+Ox3, euthymic affect Results & Data Results & Data Vital Signs (Past 12 Hours) Vital Signs Temp Pulse Resp BP Pulse Ox O2 Del Method O2 Flow Rate 04/29/23 07:36 89 18 90 Nasal Cannula 2 04/29/23 07:35 Nasal Cannula 2 04/29/23 07:10 38.5 C H 99 H 21 140/82 94 Nasal Cannula 1.5 04/29/23 03:19 37.7 C H 86 24 146/87 H 93 Nasal Cannula 2 Laboratory Results Abnormal lab results 04/29/23 Range/Units 05:37 RBC 4.09 L (4.70-6.10) M/uL Hgb 12.4 L (14.0-18.0) g/dl Hct 35.7 L (42.0-52.0) % Sodium 135 L (136-145) mmol/L Potassium 3.4 L (3.5-5.1) mmol/L Glucose 107 H (70-99(Fasting)) mg/dl Calcium 8.2 L (8.6-10.3) mg/dl Magnesium 1.6 L (1.7-2.4) mg/dl
[2023-04-29] MEDS: levoFLOXacin/D5W 750 MG/150 ML BAG IV SCH (13:00)
[2023-04-29] MEDS: ENOXAPARIN INJ 40 MG/0.4 ML SYR SQ SCH (21:02)
[2023-04-29] MEDS: FAMOTIDINE 20 MG TAB PO SCH (21:02)
[2023-04-30] MEDS: PANTOprazole 40 MG TAB PO SCH (06:02)
[2023-04-30] MEDS: PROMETHAZINE HCL 6.25 MG in SODIUM CHLORIDE 0.9% 50 ML IV PRN (06:25)
[2023-04-30] MEDS: BENZONATATE 100 MG CAPSULE PO PRN (06:34)
[2023-04-30] MEDS: FORMOTEROL 20 MCG/2 ML VIAL INH SCH ×2 (07:09→20:29)
[2023-04-30] MEDS: BUDESONIDE 0.5 MG/2 ML VIAL (PULMICORT) NEB SCH ×2 (07:09→20:29)
[2023-04-30] MEDS: SODIUM CHLOR 7% 4 ML NEB NEB SCH ×2 (07:09→20:29)
--- NOTE | 2023-04-30 07:34 | Pulmonology Progress Note ---
Date of Service April 30, 2023 Assessment & Plan (1) Community acquired pneumonia: (2) Sepsis: (3) Acute respiratory failure with hypoxia: Plan CT chest 04/26/2023 personally reviewed: Dense consolidative process appreciated in the right upper lobe Small right-sided pleural effusion No significant mediastinal lymphadenopathy -- Acute hypoxic respiratory failure Secondary to pneumonia Had diarrhea and hyponatremic on presentation. 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 Respiratory bio fire negative for everything on 04/26/2023 Nasal MRSA negative Procalcitonin 7.66--> 5.29 -- Probable JOSE Recommend BiPAP nightly and as needed shortness of breath Outpatient polysomnography highly recommended Plan: +13 L since coming to the hospital but patient does not have urine output measured. Chest x-ray from today does not show any significant change compared to day before yesterday. Mild blunting of the right costophrenic angle. Will give 20 mg of Lasix today Potassium and magnesium replaced Continue with Brovana and budesonide along with flutter valve. Would recommend Symbicort 80-4.5 mcg 1 puff twice a day or Breo 101 puff on a daily basis for a month or 2 on discharge Continue with hypertonic saline nebulized Nasal Flonase Case was discussed with Dr. Hilton Please note the above document was generated using voice recognition software. It may contain grammatical, syntax or spelling errors.Any formal questions or concerns about the content, text or information contained within the body of this dictation should be directly addressed to the provider for clarification. Admission and Anticipated Discharge Date Admission Date: April 26, 2023 Subjective Patient seen and examined at bedside. No acute distress, no adverse events overnight He was saturating 87-88% on room air. On asking him to take deep breaths his saturation did improve to 91-92% on room air Overall he says he is feeling better. He still spiking low-grade fever but much better compared to when he came to the hospital Coughing up clear phlegm. Denies any hemoptysis Shortness of breath is getting better Did not use his CPAP last night. Review of Systems 2 Review of Systems: All systems reviewed & are unremarkable except as noted in Subjective Physical Exam 2 Physical Exam: Constitutional: No acute distress HEENT: EOMI, PERRLA Respiratory system: Decreased air entry on the right side, crackles as well as rhonchi appreciated on the right side anteriorly and posteriorly, no wheeze CVS: S1-S2 positive, no murmurs or gallops Abdomen: Soft, nontender, nondistended, positive bowel sounds x4, obese Extremities: +2 pulses bilaterally radialis/ dorsalis pedis, no cyanosis, no edema Neuro: Awake alert oriented x3 Psych: Normal mood and affect G/U: No [place] Skin: no rashes, warm and dry Lymphatic: no cervical or axillary lymphadenopathy Results & Data Results & Data Vital Signs (Past 12 Hours) Vital Signs Temp Pulse Resp BP BP Pulse Ox O2 Del Method 04/30/23 07:12 90 20 90 Room Air 04/30/23 03:55 37.6 C H 88 20 127/80 91 Room Air 04/29/23 23:20 37.9 C H 87 20 135/82 92 Room Air 04/29/23 22:00 04/29/23 21:55 Room Air 04/29/23 20:15 80 20 94 Room Air O2 Del Method 04/30/23 07:12 04/30/23 03:55 04/29/23 23:20 04/29/23 22:00 Room Air 04/29/23 21:55 04/29/23 20:15 Laboratory Results 04/29/23 05:37 04/29/23 05:37 PG Care Time/CCT Total # of Minutes Spent Total Time Spent with Patient: Total time spent is greater than 50% in coordination of care (as documented) at patient's floor/unit and/or counseling patient: Coding Level of Care Code 96251 SUB INP/OBS CARE 3/50MIN Diagnoses Community acquired pneumonia J18.9 Sepsis A41.9 Acute respiratory failure with hypoxia J96.01
--- NOTE | 2023-04-30 07:47 | XRay Report ---
XR chest 1V portable HISTORY: 58 years-old Male f/u acute shortness of breath COMPARISON: 04/28/2023 TECHNIQUE: AP view of the chest FINDINGS: Dense right upper lobe airspace consolidation with air bronchograms is redemonstrated and appears sim ilar to the prior study. The cardiac silhouette is enlarged. Asymmetric right hilar prominence with m ild interstitial coarsening of the lungs, right greater than left. Trace right pleural effusion sugge sted. Degenerative changes of the shoulders and spine. IMPRESSION: 1. Persistent dense right upper lobe airspace consolidation suggestive of pneumonia. Follow-up imagin g after treatment course again recommended in order to document complete resolution. 2. Small right pleural effusion. ACT 112: Negative or not required by law. The above report was generated using voice recognition software. It may contain grammatical, syntax o r spelling errors. Electronically signed by: Babak Xiong M.D. 04/30/2023 7:44 AM
[2023-04-30] MEDS: FLUTICASONE PROPIONATE NA SPR 16 GM BTL SCH (08:26)
[2023-04-30 08:36] LABS: Hematocrit (blood only) 30.4 % (42.0-52.0); Hemoglobin 10.9 g/dl (14.0-18.0); Mean Corpuscular Hemoglobin 30.7 pg (25.0-34.0); Mean Corpuscular Hgb Conc 35.9 g/dL (32.0-36.0); Mean Corpuscular Volume 85.6 fL (80.0-100.0); Mean Platelet Volume 10.1 fL (9.4-12.4); Platelet Count 184 K/uL (130-400); RDW Coefficient of Variation 13.4 % (11.5-14.5); RDW Standard Deviation 42.1 fL (36.4-46.3); Red Blood Count 3.55 M/uL (4.70-6.10); White Blood Count 7.12 K/ul (4.8-10.8)
[2023-04-30 08:52] LABS: BUN Creatinine Ratio 13.5 (10-20); Calcium 8.1 mg/dl (8.6-10.3); Creatinine Clr Calc Pharmacy 139.6 ml/min; Magnesium 1.7 mg/dl (1.7-2.4); Phosphorus 3.4 mg/dl (2.5-4.9); Potassium 3.5 mmol/L (3.5-5.1)
--- NOTE | 2023-04-30 10:11 | Electrocardiogram Report ---
Test Reason : Blood Pressure : / mmHG Vent. Rate : 097 BPM Atrial Rate : 097 BPM P-R Int : 166 ms QRS Dur : 090 ms QT Int : 328 ms P-R-T Axes : 055 034 033 degrees QTc Int : 416 ms Normal sinus rhythm Normal ECG When compared with ECG of 28-APR-2023 06:24, No significant change was found Confirmed by Nathen Valdez ([id number]) on 04/30/2023 10:11:28 AM Referred By: REFERRED SELF Confirmed By:Suamn Valdez
--- NOTE | 2023-04-30 10:16 | Hospitalist Progress Note ---
Date of Service April 30, 2023 Assessment & Plan (1) Sepsis: Plan: 58-year-old male with no significant past medical history presents with high fevers starting last Saturday. Fevers of upto 104 F at home. Also had nausea, vomiting, diarrhea, Poor appetite Developed cough shortly after. 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 No recent travel outside the . Visited [facility] recently. No exposure t o know TB. Sepsis Encephalopathy: Patient is currently AOx3 Community Acquired Pneumonia (Right upper lobe pneumonia) Elevated procalcitonin 7.66 Normal lactate Tick borne labs (lyme, anaplasma, babesia) are negative Resp PCR is negative Stool PCR is negative Blood and urine cultures negative so far TB test negative Legionella test in lab CT chest shows right upper lobe pneumonia CT abdomen pelvis. No acute abnormalities. Nonspecific peritoneal stranding without definite acute abnormality Received Zosyn and azithromycin in the ER and then changed to levofloxacin Matte Cutter on board Continue levofloxacin Continue budesonide and formoterol nebs. Continue guaifenesin q12h, tessalon perrles IVF stopped Reviewed CXR today IV lasix 20mg given Monitor electrolytes and replete as needed Patient's UA does not suggest UTI UCx negative Hyponatremia Sodium 129 on admission Improved to 135 today Monitor DVT prophylaxis Lovenox Disposition Telemetry floor Full code I updated patient and at bedside Needs PT/OT eval prior to dc Needs amb pulse ox prior to dc as well I spent a total of 40 minutes coordinating, documenting and providing care for this patient excluding time spent in performance of separately billed services Admission and Anticipated Discharge Date Admission Date: April 26, 2023 Subjective Patient seen and examined Sitting in chair Reports feeling better On room air Reports cough is improving Denied shortness of breath Denied nausea, vomiting, abd pain One loose stool today and yesterday Denied dysuria, freq, hematuria, incontinence Physical Exam Constitutional: + ill appearing and + well hydrated; no acute distress Eyes: PERRL, conjunctivae normal, anicteric sclerae ENMT: external ear and nose normal, oropharynx normal Respiratory: normal respiratory effort; no respiratory distress Reduced breath sounds with crackles on right lugn Cardiovascular: Rate/Rhythm: regular rate and regular rhythm S1 S2 Gastrointestinal (Abdomen): normal bowel sounds, soft, nontender, no hepatosplenomegaly Musculoskeletal: no cyanosis or clubbing, extremities motor strength 5/5 No pedal edema Neurologic: PERRL, EOMI, accommodation nl, no face palsy, no dysarthria Psychiatric: A+Ox3, euthymic affect Results & Data Results & Data Vital Signs (Past 12 Hours) Vital Signs Temp Pulse Resp BP BP Pulse Ox O2 Del Method 04/30/23 07:39 37.6 C H 85 18 135/84 91 Room Air 04/30/23 07:12 90 20 90 Room Air 04/30/23 03:55 37.6 C H 88 20 127/80 91 Room Air 04/29/23 23:20 37.9 C H 87 20 135/82 92 Room Air Laboratory Results Abnormal lab results 04/30/23 Range/Units 07:44 RBC 3.55 L (4.70-6.10) M/uL Hgb 10.9 L (14.0-18.0) g/dl Hct 30.4 L (42.0-52.0) % Sodium 135 L (136-145) mmol/L Glucose 103 H (70-99(Fasting)) mg/dl Calcium 8.1 L (8.6-10.3) mg/dl
[2023-04-30] MEDS ORDERED: FUROSEMIDE INJ 20 MG/2 ML VIAL IV ONE ×2 (10:30→12:12)
[2023-04-30] MEDS ORDERED: POTASSIUM CHLORIDE CRTAB 20 MEQ TABCR PO STA (12:12)
[2023-04-30] MEDS: guaiFENesin 600 MG TABCR PO SCH ×2 (12:20→20:25)
[2023-04-30] MEDS: levoFLOXacin/D5W 750 MG/150 ML BAG IV SCH (12:20)
[2023-04-30] MEDS: MAGNESIUM SULFATE / D5W 1 GM/100 ML BAG IV SCH ×2 (13:21→16:12)
[2023-04-30] MEDS: ENOXAPARIN INJ 40 MG/0.4 ML SYR SQ SCH (21:47)
[2023-04-30] MEDS: FAMOTIDINE 20 MG TAB PO SCH (21:47)
[2023-05-01] MEDS: PANTOprazole 40 MG TAB PO SCH (06:30)
[2023-05-01] MEDS: BUDESONIDE 0.5 MG/2 ML VIAL (PULMICORT) NEB SCH (07:39)
[2023-05-01] MEDS: FORMOTEROL 20 MCG/2 ML VIAL INH SCH (07:39)
[2023-05-01] MEDS: SODIUM CHLOR 7% 4 ML NEB NEB SCH ×2 (07:39→20:28)
[2023-05-01 08:29] LABS: Hematocrit (blood only) 33.2 % (42.0-52.0); Hemoglobin 11.2 g/dl (14.0-18.0); Mean Corpuscular Hemoglobin 29.7 pg (25.0-34.0); Mean Corpuscular Hgb Conc 33.7 g/dL (32.0-36.0); Mean Corpuscular Volume 88.1 fL (80.0-100.0); Mean Platelet Volume 9.8 fL (9.4-12.4); Platelet Count 228 K/uL (130-400); RDW Coefficient of Variation 13.4 % (11.5-14.5); RDW Standard Deviation 43.5 fL (36.4-46.3); Red Blood Count 3.77 M/uL (4.70-6.10); White Blood Count 6.36 K/ul (4.8-10.8)
[2023-05-01 08:40] LABS: BUN Creatinine Ratio 13.2 (10-20); Calcium 8.3 mg/dl (8.6-10.3); Creatinine Clr Calc Pharmacy 152.2 ml/min; Est GFR (African American) 121.2 ml/min; Est GFR (Non-African American) 104.5 ml/min; Magnesium 1.9 mg/dl (1.7-2.4); Phosphorus 3.2 mg/dl (2.5-4.9); Potassium 3.4 mmol/L (3.5-5.1)
[2023-05-01] MEDS: guaiFENesin 600 MG TABCR PO SCH ×2 (09:05→21:16)
[2023-05-01] MEDS: FLUTICASONE PROPIONATE NA SPR 16 GM BTL SCH (09:06)
[2023-05-01] MEDS ORDERED: POTASSIUM CHLORIDE CRTAB 20 MEQ TABCR PO STA (09:30)
[2023-05-01 10:16] LABS: Babesia microti DNA Not Detected (Not Detected)
--- NOTE | 2023-05-01 10:19 | Pulmonology Progress Note ---
Date of Service May 01, 2023 Assessment & Plan (1) Community acquired pneumonia: (2) Sepsis: (3) Acute respiratory failure with hypoxia: Plan CT chest 04/26/2023 personally reviewed: Dense consolidative process appreciated in the right upper lobe Small right-sided pleural effusion No significant mediastinal lymphadenopathy -- Acute hypoxic respiratory failure Secondary to Legionella pneumonia pneumonia Had diarrhea and hyponatremic on presentation. 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 Respiratory bio fire negative for everything on 04/26/2023 Nasal MRSA negative Procalcitonin 7.66--> 5.29 -- Probable JOSE Recommend BiPAP nightly and as needed shortness of breath Outpatient polysomnography highly recommended Plan: In/out: -2.3 L, urine output 3750 Legionella antigen is positive. Would recommend total 10 days of levofloxacin antibiotic course. Potassium and magnesium being replaced Continue with Brovana and budesonide along with flutter valve. Would recommend Symbicort 80-4.5 mcg 1 puff twice a day or Breo 100, 1 puff on a daily basis for a month or 2 on discharge Continue with hypertonic saline nebulized Nasal Flonase Please note the above document was generated using voice recognition software. It may contain grammatical, syntax or spelling errors.Any formal questions or concerns about the content, text or information contained within the body of this dictation should be directly addressed to the provider for clarification. Admission and Anticipated Discharge Date Admission Date: April 26, 2023 Subjective Patient seen and examined at bedside. No acute distress, no adverse events overnight Patient said he is feeling much better. Denies any nausea or vomiting No diarrhea Coughing has decreased in intensity and frequency Able to bring up phlegm. No headache, no blurry vision Review of Systems 2 Review of Systems: All systems reviewed & are unremarkable except as noted in Subjective Physical Exam 2 Physical Exam: Constitutional: No acute distress HEENT: EOMI, PERRLA Respiratory system: Decreased air entry on the right side, crackles as well as rhonchi appreciated on the right side anteriorly and posteriorly, no wheeze CVS: S1-S2 positive, no murmurs or gallops Abdomen: Soft, nontender, nondistended, positive bowel sounds x4, obese Extremities: +2 pulses bilaterally radialis/ dorsalis pedis, no cyanosis, no edema Neuro: Awake alert oriented x3 Psych: Normal mood and affect G/U: No [place] Skin: no rashes, warm and dry Lymphatic: no cervical or axillary lymphadenopathy Results & Data Results & Data Vital Signs (Past 12 Hours) Vital Signs Temp Pulse Pulse Resp BP Pulse Ox O2 Del Method 05/01/23 07:40 77 18 97 Room Air 05/01/23 07:19 36.8 C 77 20 129/77 92 Room Air 05/01/23 03:31 36.4 C L 75 18 145/86 H 92 Room Air 04/30/23 23:40 36.4 C L 83 20 138/82 91 Room Air 04/30/23 23:00 82 Laboratory Results 05/01/23 07:42 05/01/23 07:42 PG Care Time/CCT Total # of Minutes Spent Total Time Spent with Patient: Total time spent is greater than 50% in coordination of care (as documented) at patient's floor/unit and/or counseling patient: Coding Level of Care Code 32347 SUB INP/OBS CARE 2/35MIN Diagnoses Community acquired pneumonia J18.9 Sepsis A41.9 Acute respiratory failure with hypoxia J96.01
[2023-05-01] MEDS: MAGNESIUM SULFATE / D5W 1 GM/100 ML BAG IV SCH ×2 (11:01→14:31)
[2023-05-01] MEDS: levoFLOXacin/D5W 750 MG/150 ML BAG IV SCH (16:00)
--- NOTE | 2023-05-01 17:16 | Hospitalist Progress Note ---
Date of Service May 01, 2023 Assessment & Plan (1) Sepsis: Plan: 58-year-old male with no significant past medical history presents with high fevers starting last Saturday. Fevers of upto 104 F at home. Also had nausea, vomiting, diarrhea, Poor appetite Developed cough shortly after. 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 No recent travel outside the . Visited [facility] recently. No exposure t o know TB. Sepsis Acute metabolic Encephalopathy: Patient is currently AOx3 Community Acquired Pneumonia (Right upper lobe pneumonia) Elevated procalcitonin 7.66 Normal lactate Tick borne labs (lyme, anaplasma, babesia) are negative Resp PCR is negative Stool PCR is negative Blood and urine cultures negative so far TB test negative Legionella test +ve CT chest shows right upper lobe pneumonia CT abdomen pelvis. No acute abnormalities. Nonspecific peritoneal stranding without definite acute abnormality Received Zosyn and azithromycin in the ER and then changed to levofloxacin Sterile Technician on board, d/w pulm - levaquin for 10 days, ct chest in 8 weeks, symbicort for a month or 2. Continue levofloxacin Continue hyopertonic saline nebs. Continue guaifenesin q12h, tessalon perrles Monitor electrolytes and replete as needed Patient's UA does not suggest UTI UCx negative Hyponatremia Sodium 129 on admission Improved to 139 today Monitor DVT prophylaxis Lovenox Disposition Telemetry floor Full code I updated patient and at bedside Needs amb pulse ox prior to dc as well Admission and Anticipated Discharge Date Admission Date: April 26, 2023 Subjective Patient was seen and examined at bedside. Patient was sitting up in chair, on room air, NAD, resting comfortably. Patient reports cough getting better, is able to expectorate the sputum but is unaware of the color of the sputum at this time. Patient's at bedside was also updated plan of care. Patient reports feeling better, denies any headache or dizziness or nausea or vomiting. Patient reports improving appetite from today and has moved bowels today. Physical Exam Physical Exam: GENERAL: Alert and oriented x3. NAD, on RA. appears weak. Obese class II. HEENT: No pallor, no icterus. Pupils equal, round and reactive to light. Oral mucosa moist. NECK: No JVD, no neck masses. HEART: S1 and S2 heard. Regular rate and rhythm. No murmur, no gallop. RESPIRATORY SYSTEM: Normal AP diameter. No accessory muscle use. right lung crackles rhonci appreciated ABDOMEN: Soft, bowel sounds present, nontender, no distention. CENTRAL NERVOUS SYSTEM: No facial droop. Speech is clear. Obeys simple commands. Moves extremities. EXTREMITIES: No edema, no erythema seen. Results & Data Results & Data Vital Signs (Past 12 Hours) Vital Signs Temp Pulse Pulse Resp BP BP Pulse Ox 05/01/23 15:33 36.9 C 87 20 129/82 97 05/01/23 11:30 36.7 C 81 20 136/84 94 05/01/23 09:00 80 05/01/23 07:40 77 18 97 05/01/23 07:19 36.8 C 77 20 129/77 92 O2 Del Method 05/01/23 15:33 Room Air 05/01/23 11:30 Room Air 05/01/23 09:00 05/01/23 07:40 Room Air 05/01/23 07:19 Room Air
[2023-05-01] MEDS: ENOXAPARIN INJ 40 MG/0.4 ML SYR SQ SCH (21:15)
[2023-05-01] MEDS: FAMOTIDINE 20 MG TAB PO SCH (21:17)
[2023-05-02] MEDS: PANTOprazole 40 MG TAB PO SCH (06:31)
--- NOTE | 2023-05-02 07:10 | XRay Report ---
SINGLE VIEW CHEST CLINICAL HISTORY: Dyspnea. Pneumonia. FINDINGS: An AP, portable, upright chest radiograph is compared to study dated 04/30/2023 and correla eddie with chest CT dated 04/26/2023. The heart is mildly enlarged. The pulmonary vasculature is noncon gested. Dense airspace consolidation in the right lower lobe as well as mild airspace consolidation a t the right lung base is unchanged. There is a small right pleural effusion. No pneumothorax is seen. The bony thorax is grossly intact. IMPRESSION: 1. Dense airspace consolidation in the right upper lobe and mild consolidation at the right lung base is typical for pneumonia and similar to previous. Radiographic follow-up to resolution is recommende d. 2. Small right pleural effusion. 3. Cardiomegaly without radiographic evidence of congestive failure. ACT 112: Negative or not required by law. Electronically signed by: Tobias Martinez M.D. 05/02/2023 7:08 AM
[2023-05-02] MEDS: SODIUM CHLOR 7% 4 ML NEB NEB SCH (07:19)
[2023-05-02 07:55] LABS: Hematocrit (blood only) 34.6 % (42.0-52.0); Hemoglobin 11.6 g/dl (14.0-18.0); Mean Corpuscular Hgb Conc 33.5 g/dL (32.0-36.0); Mean Corpuscular Volume 89.4 fL (80.0-100.0); Mean Platelet Volume 9.7 fL (9.4-12.4); Platelet Count 269 K/uL (130-400); RDW Coefficient of Variation 13.4 % (11.5-14.5); RDW Standard Deviation 43.8 fL (36.4-46.3); Red Blood Count 3.87 M/uL (4.70-6.10); White Blood Count 6.94 K/ul (4.8-10.8)
[2023-05-02 08:03] LABS: BUN Creatinine Ratio 12.1 (10-20); Calcium 8.6 mg/dl (8.6-10.3); Creatinine Clr Calc Pharmacy 176.6 ml/min; Est GFR (African American) 129.3 ml/min; Est GFR (Non-African American) 111.6 ml/min; Potassium 4.1 mmol/L (3.5-5.1)
--- NOTE | 2023-05-02 08:12 | Pulmonology Progress Note ---
Date of Service May 02, 2023 Assessment & Plan (1) Community acquired pneumonia: (2) Sepsis: (3) Acute respiratory failure with hypoxia: Plan CT chest 04/26/2023 personally reviewed: Dense consolidative process appreciated in the right upper lobe Small right-sided pleural effusion No significant mediastinal lymphadenopathy -- Acute hypoxic respiratory failure Secondary to Legionella pneumonia Had diarrhea and hyponatremic on presentation. 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 Respiratory bio fire negative for everything on 04/26/2023 Nasal MRSA negative Procalcitonin 7.66--> 5.29 -- Probable JOSE Recommend BiPAP nightly and as needed shortness of breath Outpatient polysomnography highly recommended Plan: In/out: -2.3 L, urine output 3750 Legionella antigen is positive. Would recommend total 10 days of levofloxacin antibiotic course. Would recommend Symbicort 80-4.5 mcg 1 puff twice a day or Breo 100, 1 puff on a daily basis for a month or 2 on discharge Continue with hypertonic saline nebulized Nasal Flonase Case discussed with Dr. Cunningham Please note the above document was generated using voice recognition software. It may contain grammatical, syntax or spelling errors.Any formal questions or concerns about the content, text or information contained within the body of this dictation should be directly addressed to the provider for clarification. Admission and Anticipated Discharge Date Admission Date: April 26, 2023 Subjective Patient seen and examined at bedside. No acute distress, no adverse events overnight He says he is feeling better Saturating well on room air. Walking around without any desaturation Coughing up clear phlegm. Denies any hemoptysis No diarrhea Fair appetite Review of Systems 2 Review of Systems: All systems reviewed & are unremarkable except as noted in Subjective Physical Exam 2 Physical Exam: Constitutional: No acute distress HEENT: EOMI, PERRLA Respiratory system: Decreased air entry on the right side, crackles as well as rhonchi appreciated on the right side anteriorly and posteriorly, no wheeze CVS: S1-S2 positive, no murmurs or gallops Abdomen: Soft, nontender, nondistended, positive bowel sounds x4, obese Extremities: +2 pulses bilaterally radialis/ dorsalis pedis, no cyanosis, no edema Neuro: Awake alert oriented x3 Psych: Normal mood and affect G/U: No [place] Skin: no rashes, warm and dry Lymphatic: no cervical or axillary lymphadenopathy Results & Data Results & Data Vital Signs (Past 12 Hours) Vital Signs Temp Pulse Pulse Resp BP Pulse Ox O2 Del Method 05/02/23 07:20 82 18 95 Room Air 05/02/23 07:06 36.8 C 79 19 148/94 H 95 Room Air 05/02/23 03:11 37.0 C 71 16 149/85 H 92 Room Air 05/01/23 23:15 36.8 C 78 16 153/71 H 93 Room Air 05/01/23 23:00 79 05/01/23 20:28 91 H 18 91 Room Air Laboratory Results 05/02/23 06:59 05/02/23 06:59 PG Care Time/CCT Total # of Minutes Spent Total Time Spent with Patient: Total time spent is greater than 50% in coordination of care (as documented) at patient's floor/unit and/or counseling patient: Coding Level of Care Code 51342 SUB INP/OBS CARE 2/35MIN Diagnoses Community acquired pneumonia J18.9 Sepsis A41.9 Acute respiratory failure with hypoxia J96.01
[2023-05-02] MEDS: guaiFENesin 600 MG TABCR PO SCH (08:19)
[2023-05-02] MEDS: FLUTICASONE PROPIONATE NA SPR 16 GM BTL SCH (08:19)
[2023-05-02] MEDS ORDERED: FLUTICASONE/VILANTEROL 100/25MCG 14 PUFFS/INHALER INH SCH (09:00)
[2023-05-02] MEDS: levoFLOXacin/D5W 750 MG/150 ML BAG IV SCH (12:12)
--- NOTE | 2023-05-02 12:38 | Discharge Summary ---
Date of Service May 02, 2023 Admission HPI Per Admitting Provider 58-year-old male with no significant past medical history presents with high fevers starting last Saturday. Fevers were running as high as 104 F at home. He was also having nausea, vomiting and diarrhea. Poor appetite. Today started develop some slight cough. Has some Abdominal discomfort. Was drinking only Gatorade. Denies any headache. No neck pain. Able to flex and move his neck okay. No chest pain or shortness of breath. Not micturating much. 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 But as per no tick bite seen on the patient. Patient is very drowsy. Wakes up to answer some questions and goes back to sleep. states he is sleeping all day today. Speech seemed somewhat slurred today and she was worried about stroke .No recent travel outside the . Visited [facility] recently. No exposure to TB. Past medical history. As mentioned above Past surgical history. Colonoscopy. EGD. Extraction of tooth. Mohs repair right eyelid. Appendectomy. Social history. . No smoking. No alcohol use. No drug use. Family history. Father had COPD. Mother had a brain and breast cancer. Thyroid disorder. Sister had lung transplants. Anal cancer. Maternal grandmother diabetes. Maternal grandfather had heart disorder. Admission Exam Per Admitting Provider General- Drowsy Head- atraumatic Eyes- PERRL ENT- oropharynx dry Neck- supple, no JVD. Lungs- clear to auscultation no wheezing or crackles. Heart- regular rhythm; no murmur, no gallop. Abdomen- normal bowel sounds, soft, nontender, no distension. Extremities- no pretibial edema, no erythema seen. Neuro- Drowsy, PERRL no facial palsy; no dysarthria; motor 5/5 bilaterally; coordination of movements normal, no pronator drift. Skin- warm & dry Principal Diagnosis Sepsis POA Acute metabolic encephalopathy Legionella Pneumonia Hyponatremia Discharge Exam GENERAL: Alert and oriented x3. NAD, on RA. Obese class II. HEENT: No pallor, no icterus. Pupils equal, round and reactive to light. Oral mucosa moist. NECK: No JVD, no neck masses. HEART: S1 and S2 heard. Regular rate and rhythm. No murmur, no gallop. RESPIRATORY SYSTEM: Normal AP diameter. No accessory muscle use. right lung crackles improving, no rhonci appreciated ABDOMEN: Soft, bowel sounds present, nontender, no distention. CENTRAL NERVOUS SYSTEM: No facial droop. Speech is clear. Obeys simple commands. Moves extremities. EXTREMITIES: No edema, no erythema seen. Discharge Data Allergies Allergy/AdvReac Type Severity Reaction Status Date / Time No Known Allergies Allergy Verified 04/26/23 16:07 Consultations 04/26/23 19:16 ED Decision to Admit Stat 04/27/23 08:00 Consult Pulmonology Routine Ordered Studies 04/26/23 16:43 CT abd pelvis IV con only Stat CT angio chest PE protocol Stat Hospital Course (1) Sepsis: 58-year-old male with no significant past medical history presents with high fevers starting last Saturday. Fevers of upto 104 F at home. Also had nausea, vomiting, diarrhea, Poor appetite Developed cough shortly after. 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 No recent travel outside the . Visited [facility] recently. No exposure to know TB. Sepsis Acute metabolic Encephalopathy: Patient is currently AOx3 Community Acquired Pneumonia (Right upper lobe pneumonia) Elevated procalcitonin 7.66 Normal lactate Tick borne labs (lyme, anaplasma, babesia) are negative Resp PCR is negative Stool PCR is negative Blood and urine cultures negative so far TB test negative Legionella test +ve, Infection control notified necessary authority. CT chest shows right upper lobe pneumonia CT abdomen pelvis. No acute abnormalities. Nonspecific peritoneal stranding without definite acute abnormality Received Zosyn and azithromycin in the ER and then changed to levofloxacin Irs Agent on board, d/w pulm 05/01 - levaquin for 10 days, ct chest in 8 weeks, symbicort for a month or 2. Continue levofloxacin, 4 more days on discharge Continue guaifenesin q12h, tessalon perrles Patient reports significant improvement in his symptoms including cough, reports light yellow sputum now. Patient's UA does not suggest UTI UCx negative Hyponatremia Sodium 129 on admission Improved. Monitor DVT prophylaxis Lovenox Disposition Telemetry floor Full code Patient declined home health services. Patient is being discharged to home with following instruction at the point of discharge: Follow-up with your primary care physician within a week time and likely you will need labs CBC/CMP/magnesium/phosphorus. You were diagnosed with Legionella Pneumonia, you will be discharged on levofloxacin. Complete the course. You will need repeat CT scan of the chest in about 6 to 8 weeks upon discharge. Coordinate with your PCP office to set up the test. Take your medications as prescribed. Please make sure that you are able to get your medications today by calling your pharmacy before you leave the hospital so that your treatment continuity is not broken. Home Health Attestation I certify that this patient is under my care and that I, or a physicians supply assistant working with me, had a face to-face encounter that meets the home health [id number] encounter requirements with this patient. The encounter with the patient was in whole, or in part, for the following medical condition, which is the primary reason for home health care (list medical condition): I certify that, based on my findings, the following services are medically necessary home health services: My clinical findings support the need for the above services because: Further, I certify that my clinical findings support that this patient is homebound (i.e. absences from home require considerable and taxing effort and are for medical reasons or sikhism services or infrequently or of short duration when for other reasons) because: Certification for Home Health Services: Based on the above findings, I certify that this patient is confined to the home and needs intermittent fdc care, physical therapy and/or speech therapy or continues to need occupational therapy. The patient is under my care, and I have initiated the establishment of the plan of care. This patient will be followed by a physician who will periodically review the plan of care. Total Time Total Time Spent Total Time Spent (In Minutes): 45 Discharge Plan Discharge Items Patient Disposition: Home - Self-Care Reason For Visit: PNEMONIA, HIGH FEVERS, LETHARGY Discharge Diagnosis: Sepsis POA Acute metabolic encephalopathy Legionella Pneumonia Hyponatremia Condition on Discharge: Fair Activity: Resume your previous activity Non-emergency contact: Primary Care Provider Call non-emergency contact if: you have any medication questions, your symptoms worsen and your temperature is above 101.5 Follow-up/Referrals: Milagro Nava DO [Primary Care Provider] - (Date & Time 05/09/2023 3:00 PM Provider Milagro Nava DO [facility] ) Diet: Heart Healthy Diet Texture: Easy to Chew Addtl Attending Provider Instructions: Follow-up with your primary care physician within a week time and likely you will need labs CBC/CMP/magnesium/phosphorus. You were diagnosed with Legionella Pneumonia, you will be discharged on levofloxacin. Complete the course. You will need repeat CT scan of the chest in about 6 to 8 weeks upon discharge. Coordinate with your PCP office to set up the test. Take your medications as prescribed. Please make sure that you are able to get your medications today by calling your pharmacy before you leave the hospital so that your treatment continuity is not broken. Pending Studies at Discharge: No Stand-Alone Forms: My [facility], Smoking Cessation Medications and DC Order Prescriptions: New fluticasone propionate 50 mcg/actuation [place],Suspension 2 spray NA DAILY Qty: 16 0RF benzonatate 100 mg Capsule 100 mg PO TID PRN (Reason: cough) 5 Days Qty: 15 0RF fluticasone furoate-vilanterol [Breo Ellipta] 100-25 mcg/dose Blister With Device 1 inh inhalation DAILY Qty: 60 0RF guaifenesin [Mucinex] 600 mg Tablet Extended Release 12hr 1,200 mg PO Q12 5 Days Qty: 20 0RF levofloxacin 750 mg tablet 750 mg PO DAILY 4 Days Qty: 4 0RF Probiotic 3 billion cell capsule 3,000 mmu cells PO DAILY 7 Days Qty: 7 0RF Rx Instructions: administer with a meal Continued omeprazole 20 mg Capsule,Delayed Release(Dr/Ec) 20 mg PO DAILYBB ondansetron HCl 4 mg Tablet 4 mg PO Q8H PRN (Reason: Nausea) Discharge Orders: Discharge Order (Routine); Ordered 05/02/23 Ordered By: Marion Cunningham Admission Data Admit Date/Time: 04/26/23 20:02 Attending Provider: Marion Cunningham Admit Provider: Marcello Boles Primary Care Provider: Milagro Nava Other Providers: Marcello Boles; Fredi Potter
== END 2023-05-02 14:10 | disposition home or self-care (01) | DRG 871 ==
LOC: ED 14:24 → SUATTDRO 20:02 → 2S 20:02